=== PATIENT | male | born 1950 | race Caucasian/White ===

== ENCOUNTER 2024-04-27 09:47 | Outpatient (CLI) | payer MEDICARE, SELFPAY ==
--- NOTE | ~2024-04-27 | US_ITS ---
EXAMINATION: US carotid duplex BI DATE: 04/27/2024 10:27 INDICATION: Carotid occlusion. TECHNIQUE: Grayscale, color Doppler, and pulsed Doppler images of the cervical carotid arteries were obtained. The degree of vessel stenosis is placed in one of the following categories: normal, <50%, 5 0-69%, >=70% but less than near-occlusion, near-occlusion, or total occlusion. Note that percent sten osis relative to normal distal artery lumen diameter is indirectly measured from velocity measurement s as described by Eddie, et al. Radiology 2003; 229:340-346. Notes: Normal: Peak systolic velocity <125 centimeters/sec and no plaque <50%. Peak systolic velocity <125 ( EDV <40; ICA/CCA PSV ratio <2.0; used these factors only a tandem lesions or low cardiac output or co ntralateral disease) 50-69 %: PSV 125-230 (EDV 40-100; ratio 2-4) >= 70% but less than near occlusion: PSV greater than 230 (EDV > 100; ratio> 4.0) Near Occlusion: PSV that is variable; markedly narrowed lumen Occlusion: Absent flow on color/spectral Doppler and no lumen on donald scale. COMPARISON: None. FINDINGS: RIGHT: The right common carotid artery (CCA) peak systolic velocity (PSV) is 92 cm/s. The right internal car otid artery (ICA) PSV is 56 cm/s. The right ICA end-diastolic velocity (EDV) is 17 cm/s. The right IC A/CCA PSV ratio is 0.6. The external carotid artery (ECA) PSV is 44 cm/s. There is antegrade flow in the right vertebral artery. LEFT: The left CCA PSV is 83 cm/s. The left ICA PSV is 55 cm/s. The left ICA EDV is 19 cm/s. The left ICA/C CA PSV ratio is 0.7. The ECA PSV is 63 cm/s. There is antegrade flow in the left vertebral artery. IMPRESSION: 1. Less than 50% stenosis in the right internal carotid artery by sonographic criteria. 2. Less than 50% stenosis in the left internal carotid artery by sonographic criteria. Reviewed, dictated and finalized at location B. IMPRESSION: 1. Less than 50% stenosis in the right internal carotid artery by sonographic sonia trujillo. 2. Less than 50% stenosis in the left internal carotid artery by sonographic shin vital.
--- OUTSIDE RECORDS SUMMARY | 2024-04-27 10:48 | XMS_ITS | CONTINUITY OF CARE DOCUMENT ---
Author Name bobby rosales Address Unknown Organization [facility] Address [address] [place] [address] Phone [phone] Care Team Providers Care Meeting Facilitator Name Role Phone Hakan ZELAYA, Wendi Baer Unavailable [phone] Ananth Morris MD Unavailable Ananth Morris MD Unavailable PROBLEMS Condition Status Date Provider Notes AMI SUBENDOCARDIAL active Wendi Mcclendon MD CAD completed - Adi Cabrera MD HTN BORDERLINE active Wendi Mcclendon MD Hypercholesterolemia, mixed active Lin prince CHF active Wendi Mcclendon MD CARDIOMYOPATHY ef 40% active Adi Menchaca Dizziness carotid doppler mild plaque active Adi Cabrera MD Snoring active Wendi Mcclendon MD Shortness of breath active Wendi Mcclendon MD PVC's active Wendi Mcclendon MD CALLUM active Wendi Mcclendon MD Cardiology examination active Wendi sr MD ENCOUNTERS Date Type Provider Location Encounter Diag nosis - In-person encounter Office Visit Wendi Mcclendon MD [facility] Cardiology examination - In-person encounter Office Visit Wendi Mcclendon MD [facility] - In-person encounter Office Visit Wendi Mcclendon MD [facility] - In-person encounter Office Visit Wendi Mcclendon MD [facility] - In-person encounter Office Visit Wendi Mcclendon MD [facility] - In-person encounter Office Visit Wendi Mcclendon MD [facility] - In-person encounter Office Visit Wendi Mcclendon MD [facility] CALLUM - In-person encounter Office Visit Wendi Mcclendon MD [facility] Office - In-person encounter Office Visit Wendi Mcclendon MD [facility] - In-person encounter Office Visit Wendi Mcclendon MD [facility] PVC's - In-person encounter Office Visit Wendi Mcclendon MD [facility] - In-person encounter Office Visit Wendi Mcclendon MD [facility] - In-person encounter Office Visit Wendi Mcclendon MD [facility] - In-person encounter Office Visit Wendi Mcclendon MD [facility] - In-person encounter Office Visit Wendi Mcclendon MD [facility] Shortness of breath - In-person encounter Office Visit Wendi Mcclendon MD [facility] - In-person encounter Office Visit Wendi Mcclendon MD [facility] - In-person encounter Office Visit Wendi Mcclendon MD [facility] Snoring - In-person encounter Office Visit Wendi Mcclendon MD [facility] - In-person encounter Office Visit Wendi Mcclendon MD [facility] - In-person encounter Office Visit Adi Cabrera MD [facility] CADCARDIOMYOPATHY ef 40%Dizziness carotid doppler 06/23 mild plaque - In-person encounter Office Visit Wendi Mcclendon MD [facility] - In-person encounter Office Visit Wendi Mcclendon MD [facility] - In-person encounter Office Visit Wendi Mcclendon MD [facility] AMI SUBENDOCARDIALHTN BORDERLINEHypercholesterolem ia, mixedCHFCARDIOMYOPATHY ef 40% VITAL SIGNS Date Observation Value Provider Body Mass Index (Ratio) 37.60 kg/m2 Kevin Mcclendon MD blood pressure, diastolic 82 mm[Hg] [facility] systolic 121 mm[Hg] [facility] oxygen saturation, oximetry 94 % [facility] respiratory rate E&M 14 /min [facility] pulse rate 89 /min Rebecca [place] weight E&M 226 [lb_av] [facility] height E&M 65 [in_i] [facility] blood pressure, cuff size regular [facility] Body Mass Index (Ratio) 37.94 kg/m2 Rodo reyez Sam blood pressure, diastolic 94 mm[Hg] Li nkLogic blood pressure, systolic 148 mm[Hg] Shelbie kLogic respiratory rate E&M 14 /min Hanh Evangelista pulse rate 71 /min Hanh Evangelista oxygen saturation, oximetry 97 % Hanh Possara blood pressure, diastolic 94 mm[Hg] Shaila bright Posley blood pressure, systolic 148 mm[Hg] Les lie Posley blood pressure, cuff size regular Shaila bright [place] weight E&M 228 [lb_av] Hanh [place] height E&M 65 [in_i] Hanh Posley Body Mass Index (Ratio) 39.27 kg/m2 Kevin Mcclendon MD blood pressure, diastolic 70 mm[Hg] Li nkLogic blood pressure, systolic 114 mm[Hg] Shelbie kLogic blood pressure, cuff size regular Ke rri Gruenenfelder blood pressure, diastolic 70 mm[Hg] Ke rri Gruenenfelder blood pressure, systolic 114 mm[Hg] Ker ri Mohituenenfelder oxygen saturation, oximetry 99 % Lin Cornellnesadieeldmagdalena respiratory rate E&M 12 /min Lin G ruenenfelder pulse rate 93 /min Lin Gruenenfe lder weight E&M 236 [lb_av] Lin Gruenenfe lder height E&M 65 [in_i] Lin Gruenenfe lder Body Mass Index (Ratio) 38.60 kg/m2 Kevin Mcclendon MD blood pressure, diastolic 80 mm[Hg] Yandy nkLogic blood pressure, systolic 129 mm[Hg] Shelbie Esmerogic blood pressure, diastolic 80 mm[Hg] St neal Donnelly blood pressure, systolic 129 mm[Hg] Sheri Donnelly oxygen saturation, oximetry 97 % Elza Donnelly pulse rate 83 /min Elzawill Donnelly respiratory rate E&M 16 /min Elza siddiqui weight E&M 232 [lb_av] Elzawill Donnelly height E&M 65 [in_i] Elza Donnelly Body Mass Index (Ratio) 38.10 kg/m2 Kevin Mcclendon MD blood pressure, diastolic 73 mm[Hg] Li nkLogic blood pressure, systolic 116 mm[Hg] Shelbie kLogic blood pressure, cuff size regular Ja rret blood pressure, diastolic 73 mm[Hg] Ja rret blood pressure, systolic 116 mm[Hg] Jar ret oxygen saturation, oximetry 95 % Avtar respiratory rate E&M 12 /min Avtar pulse rate 73 /min Avtar y weight E&M 229 [lb_av] Avtar y height E&M 65 [in_i] Avtar y Body Mass Index (Ratio) 39.27 kg/m2 Kevin Mcclendon MD blood pressure, diastolic 83 mm[Hg] Li nkLogic blood pressure, systolic 135 mm[Hg] Shelbie kLogic blood pressure, diastolic 83 mm[Hg] Ca therine Kishore blood pressure, systolic 135 mm[Hg] Cat herine Kishore oxygen saturation, oximetry 97 % Harper Kishore respiratory rate E&M 16 /min Catheri ne [place] pulse rate 94 /min Harper Kishore weight E&M 236 [lb_av] Harper [place] blood pressure, cuff size regular Ca therine [place] height E&M 65 [in_i] Harper Kishore blood pressure, diastolic 88 mm[Hg] Li nkLogic blood pressure, systolic 150 mm[Hg] Shelbie kLogic Body Mass Index (Ratio) 38.60 kg/m2 Kevin Mcclendon MD blood pressure, cuff size regular Tr darren [place] blood pressure, diastolic 88 mm[Hg] Tr darren Ranulfo blood pressure, systolic 150 mm[Hg] Zuleika [place] oxygen saturation, oximetry 99 % Taran [place] respiratory rate E&M 18 /min Trymark [place] pulse rate 88 /min Taran [place] weight E&M 232 [lb_av] Taran [place] height E&M 65 [in_i] Taran Ranulfo blood pressure, diastolic 70 mm[Hg] Sa brynn Mcclendon MD blood pressure, systolic 130 mm[Hg] Lloyd Mcclendon MD pulse rate 70 /min Wendi damon MD Body Mass Index (Ratio) 41.26 kg/m2 Kevin Mcclendon MD blood pressure, cuff size regular Cy janelson Castaneda blood pressure, diastolic 74 mm[Hg] Cy ntjoannanelson Castaneda blood pressure, systolic 120 mm[Hg] Brenda nilsonnelson Castaneda pulse rate 96 /min Mami Josefa l respiratory rate E&M 16 /min Mami Castaneda oxygen saturation, oximetry 98 % Mami Castaneda weight E&M 248 [lb_av] Mami Matthewbel l height E&M 65 [in_i] Mami Campbel l Body Mass Index (Ratio) 40.77 kg/m2 Kevin Mcclendon MD blood pressure, diastolic 81 mm[Hg] To nsha Bradley blood pressure, systolic 117 mm[Hg] Ton sha Bradley oxygen saturation, oximetry 98 % Tonsha Bradley respiratory rate E&M 16 /min Tonsha Bradley pulse rate 81 /min Tonsha Bradley weight E&M 245 [lb_av] Tonsha Bradley height E&M 65 [in_i] Tonsha Bradley Body Mass Index (Ratio) 41.60 kg/m2 Kevin Mcclendon MD blood pressure, cuff size regular Cy ntreinaldo Castaneda blood pressure, diastolic 80 mm[Hg] Cy ntjoannaa Castaneda blood pressure, systolic 124 mm[Hg] Brenda terrell Castaneda oxygen saturation, oximetry 95 % Mami Castaneda respiratory rate E&M 16 /min Mami Castaneda pulse rate 75 /min Mami Campbel l weight E&M 250 [lb_av] Mami Campbel l height E&M 65 [in_i] Mami Campbel l Body Mass Index (Ratio) 41.10 kg/m2 Kevin Mcclendon MD blood pressure, cuff size regular Cy ntreinaldo Castaneda blood pressure, diastolic 70 mm[Hg] Cy ntjoannaa Castaneda blood pressure, systolic 116 mm[Hg] Brenda terrell Castaneda oxygen saturation, oximetry 98 % Mamiterrell Castaneda respiratory rate E&M 18 /min Mami Castaneda pulse rate 90 /min Mami Campbel l weight E&M 247 [lb_av] Mami Campbel l height E&M 65 [in_i] Mami Campbel l Body Mass Index (Ratio) 40.50 kg/m2 Jalen Plurad blood pressure, cuff size large Ke rri Mohituenemary blood pressure, diastolic 80 mm[Hg] Ke rri Gruenenfeldmagdalena blood pressure, systolic 130 mm[Hg] Ker ri Ivis oxygen saturation, oximetry 96 % Lin Ivis respiratory rate E&M 18 /min Lin elam pulse rate 74 /min Lin Cornellnesadiee lder weight E&M 243.4 [lb_av] Lin Bernardino rojas height E&M 65 [in_i] Lin Grradhanesadiee lder Body Mass Index (Ratio) 41.43 kg/m2 Kevin Mcclendon MD blood pressure, resting No GrettaEmilee Hummel blood pressure, diastolic 87 mm[Hg] Yonny Stiven Anneenson blood pressure, systolic 135 mm[Hg] Carolyn Hummel oxygen saturation, oximetry 96 % Santos Anneenson respiratory rate E&M 20 /min LissetShayy Hummel pulse rate 93 /min Santos Kei cicion weight E&M 249.0 [lb_av] Santos Omid on height E&M 65 [in_i] Santos Choudhury cicion blood pressure, diastolic 100 mm[Hg] Be tsy Ruiz blood pressure, systolic 150 mm[Hg] Bet sy Ruiz blood pressure, diastolic 80 mm[Hg] Ke rri Ivis blood pressure, systolic 130 mm[Hg] Dipika ri Ivis pulse rate 89 /min Lin Saran arguetaer oxygen saturation, oximetry 96 % Lin Langston respiratory rate E&M 16 /min Lin elam Body Mass Index (Ratio) 40.77 kg/m2 Amador i Ivis weight E&M 245 [lb_av] Lin Bernardinoe lder blood pressure, diastolic 91 mm[Hg] Yonny Stiven Hummel blood pressure, systolic 138 mm[Hg] Carolyn Hummel pulse rate 82 /min Santos Kei ami oxygen saturation, oximetry 96 % Santos Hummel respiratory rate E&M 16 /min Wendy Hummel Body Mass Index (Ratio) 41.23 kg/m2 Lisset Hummel weight E&M 247.8 [lb_av] Santos petersonon blood pressure, diastolic 91 mm[Hg] Yonny Hummel blood pressure, systolic 136 mm[Hg] Carolyn Hummel Body Mass Index (Ratio) 40.17 kg/m2 Lisset Hummel pulse rate 68 /min Santos bolanoson oxygen saturation, oximetry 96 % Santos Hummel respiratory rate E&M 16 /min Wendy Hummel weight E&M 241.4 [lb_av] Santos salazar Body Mass Index (Ratio) 39.77 kg/m2 Amador i Ivis blood pressure, diastolic 78 mm[Hg] Ke rri Ivis blood pressure, systolic 140 mm[Hg] Dipika Langston pulse rate 68 /min Lin Noonan lder oxygen saturation, oximetry 97 % Lin Langston respiratory rate E&M 16 /min Lin elam weight E&M 239 [lb_av] Lin Noonan lder Body Mass Index (Ratio) 40.53 kg/m2 Demetrius sulaiman [place] [employer] weight E&M 243.6 [lb_av] Jazmin [place] [employer] RE[employer]TER blood pressure, diastolic 90 mm[Hg] Sh erry Zoraida C[employer]IED [employer]ORTH[employer] REPORTER blood pressure, systolic 134 mm[Hg] She rry [place] [employer] RE[employer]TER Body Mass Index (Ratio) 38.20 kg/m2 Demetrius ry Zoraida C[employer]IED [employer]ORTH[employer] REPORTER weight E&M 229.6 [lb_av] Jazmin [place] [employer] RE[employer]TER Body Mass Index (Ratio) 38.27 kg/m2 Anea mahesh Gato blood pressure, diastolic 90 mm[Hg] An eatris Brown blood pressure, systolic 134 mm[Hg] Ane atris Brown pulse rate 69 /min Aneatris Brown oxygen saturation, oximetry 97 % Aneatris Brown respiratory rate E&M 16 /min Aneatri s Brown weight E&M 230 [lb_av] Aneatris Brown Body Mass Index (Ratio) 37.94 kg/m2 Amador i Ivis blood pressure, diastolic 78 mm[Hg] Ke rri Ivis blood pressure, systolic 122 mm[Hg] Ker ri Ivis pulse rate 72 /min Lin Saran arguetaer oxygen saturation, oximetry 98 % Lin Ivis respiratory rate E&M 16 /min Lin G papa weight E&M 228 [lb_av] Lin Bernardinoe lder Body Mass Index (Ratio) 38.88 kg/m2 Demetrius [place] C[employer]IED [employer]TH[employer] REPORTER weight E&M 232.8 [lb_av] Jazmin Hopkinsdall C[employer]OR[employer] REPORTER Body Mass Index (Ratio) 22.88 kg/m2 Elizabeth ssa Rivera blood pressure, diastolic 84 mm[Hg] Me eleazar Rivera blood pressure, systolic 120 mm[Hg] Bambi lexa Rivera pulse rate 70 /min Jie Rivera oxygen saturation, oximetry 97 % Jie Rivera respiratory rate E&M 16 /min Jie Rivera weight E&M 137 [lb_av] Jie Rivera height E&M 65 [in_i] Jie Miguel ALLERGIES Allergy Name Onset Date Reaction Criticality Status ADVIL High Criticality active RESULTS Date Observation Value Provider Reference Range Interpretation Location alanine aminotransferase (SGPT), serum 18 1/L [facility] 9-46 Normal aspartate aminotransferase (SGOT), serum 12 1/L [facility] 10-35 Normal alkaline phosphatase, serum 73 1/L [facility] 40-115 Normal bilirubin, serum, indirect 0.6 MG/DL (CALC) [facility] 0.2-1.2 Normal bilirubin, serum, direct 0.1 mg/dL [facility] < OR = 0.2 Normal bilirubin, serum, total 0.7 mg/dL [facility] 0.2-1.2 Normal albumin/globulin ratio, serum 1.6 (calc) [facility] 1.0-2.5 Normal globulins, serum, total 2.4 G/DL (CALC) [facility] 1.9-3.7 Normal albumin, serum 3.9 g/dL [facility] 3.6-5.1 Normal protein, total, serum 6.3 g/dL [facility] 6.1-8.1 Normal cholesterol, non-HDL, total 121 MG/DL (CALC) [facility] Normal cholesterol/HDL ratio, serum, percent 3.5 (calc) [facility] < OR = 5.0 Normal LDL cholesterol, serum 98 MG/DL (CALC) [facility] <130 Normal triglyceride, serum, fasting 113 mg/dL [facility] <150 Normal HDL cholesterol, serum 48 mg/dL [facility] > OR = 40 Normal cholesterol, serum 169 mg/dL [facility] 125-200 Normal cholesterol, non-HDL, total 127 MG/DL (CALC) [facility] Normal cholesterol/HDL ratio, serum, percent 3.8 (calc) [facility] < OR = 5.0 Normal LDL cholesterol, serum 100 MG/DL (CALC) [facility] <130 Normal triglyceride, serum, fasting 136 mg/dL [facility] <150 Normal HDL cholesterol, serum 45 mg/dL [facility] > OR = 40 Normal cholesterol, serum 172 mg/dL [facility] 125-200 Normal triglyceride, serum, fasting 136 mg/dL [facility] HDL cholesterol, serum 42 mg/dL [facility] LDL cholesterol, serum 155 mg/dL [facility] cholesterol, serum 224 mg/dL [facility] cholesterol/HDL ratio, serum 3.8 Jazmin [place] C[employer] RE[employer]TER triglyceride, serum, fasting 126 mg/dL Jazmin Zoraida C[employer]OR[employer] REPORTER HDL cholesterol, serum 42 mg/dL Jazmin [place] [employer] RE[employer] LDL cholesterol, serum 94 mg/dL Jazmin Zoraida C[employer] RE[employer] cholesterol, serum 161 mg/dL Jazmin Zoraida C[employer] REPORTER triglyceride, target level 150 mg/dL Jazmin Zoraida C[employer] REPORTER HDL cholesterol, serum, target level 40 mg/dL Jazmin [place] C[employer] RE[employer] LDL target level 100 mg/dL Jazmin Zoraida C[employer] REPORTER cholesterol, target level 200 mg/dL Jazmin Zoraida C[employer] REPORTER cholesterol/HDL ratio, serum 3.8 Jazmin Zoraida C[employer] REPORTER triglyceride, serum, fasting 113 mg/dL Jazmin Zoraida C[employer] RE[employer] HDL cholesterol, serum 44 mg/dL Jazmin [place] C[employer] RE[employer] LDL cholesterol, serum 100 mg/dL Jazmin Zoraida C[employer] REPORTER cholesterol, serum 166 mg/dL Jazmin Zoraida C[employer] REPORTER TOTAL NON-HDL-C (LDL VLDL) 117 Jazmin Zoraida C[employer] REPORTER cholesterol/HDL ratio, serum 4.3 Jazmin Zoraida C[employer] REPORTER cholesterol, serum 151 mg/dL Jazmin Zoraida [employer] RE[employer]TER triglyceride, target level 150 mg/dL Jazmin [place] C[employer] RE[employer] HDL cholesterol, serum, target level 40 mg/dL Jazmin Zoraida C[employer] REPORTER triglyceride, serum, fasting 87 mg/dL Jazmin Zoraida C[employer] REPORTER Normal HDL cholesterol, serum 38 mg/dL Jazmin Zoraida C[employer]IED [employer]OR[employer] REPORTER Low LDL cholesterol, serum 99 mg/dL Jazmin Conway C[employer]IED [employer]OR[employer] REPORTER Normal LDL target level 100 mg/dL Jazmin Ortizll C[employer]IED [employer] REPORTER cholesterol, target level 200 mg/dL Jazmin Conway C[employer] REPORTER platelet count 156 10*3/mm3 [facility] hematocrit, blood 38.2 % [facility] triglyceride, serum, fasting 176 mg/dL [facility] HDL cholesterol, serum 40 mg/dL [facility] lipoprotein, beta, serum, point, quantitative, calculated 139 mg/dL [facility] cholesterol, serum 214 mg/dL [facility] D-dimer quantitative mcg/mL 0.59 ug/mL [facility] B-type natriuretic peptide 10.7 pg/mL [facility] creatinine, serum 0.80 mg/dL [facility] potassium, serum 4.3 mmol/L [facility] sodium, serum 136 mmol/L [facility] HISTORY OF MEDICATION USE Medication Status Instructions Dates Provider Indications Com ments atorvastatin 20 mg tablet active TAKE 1 TABLET BY MOUTH EVERY DAY 1 Annette Rushing enalapril maleate 10 mg tablet active TAKE 1 TABLET BY MOUTH DAILY 8 Cristina Gee atorvastatin 20 mg tablet completed TAKE 1 TABLET BY MOUTH DAILY 7 - 1 Dara Schultz carvedilol 3.125 mg tablet active TAKE 1 TABLET BY MOUTH TWICE DAILY 2 Annette Motthiyeni enalapril maleate 10 mg tablet completed Take 1 tablet by mouth once a day 9 - 8 Dara Schultz glimepiride 1 mg tablet active tablet by mouth once a day Santos Hummel metformin 500 mg tablet active 1 tablet by mouth twice a day Wendi Mcclendon MD Lipitor 20 mg tablet completed 1 tablet by mouth once a day 5 - 7 Megan Adam ZETIA 10 MG ORAL TABLET completed ONE TAB. DAILY 4 - 5 Ananda Cervantes RN CRESTOR 20 MG ORAL TABLET completed ONE TAB. DAILY 8 - 4 Ananda Cervantes RN LIPITOR 80 MG ORAL TABLET completed ONE TAB. DAILY 0 - 8 Jazmin Conway NP carvedilol 3.125 mg tablet completed 1 tablet by mouth twice a day - 2 Wendi Mcclendon MD ENALAPRIL MALEATE 10 MG ORAL TABLET completed once daily - 8 Otto Stewart PLAVIX 75 MG ORAL TABLET completed once daily - 4 Santos Hummel aspirin 325 mg tablet active tablet by mouth once a day Wendi Mcclendon MD SOCIAL HISTORY Date Observation Value Provider alcohol use no Yolanda Lilly NP smoking status Never smoker Yolanda Francisco i, NP alcohol use no Wendi damon MD smoking status Never smoker Wendi sr MD smoking status Never smoker Elza Donnelly social history E&M Patient has n ever smoked. Smoking History: Sam monzon has never smoked. Wendi Mcclendon MD social history reviewed E&M revi ewed - no changes required Wendi Mcclendon MD smoking status Never smoker Harper aparicio social history reviewed E&M revi ewed - no changes required Wendi Mcclendon MD social history reviewed E&M revi ewed - no changes required Wendi Mcclendon MD social history E&M Patient has n ever smoked. Smoking History: P na has never smoked. Wendi Mcclendon MD social history reviewed E&M revi ewed - no changes required Wendi Mcclendon MD smoking status Never smoker Mami elizalde smoking status Never smoker Wendi sr MD social history E&M Patient has n ever smoked. Smoking History: P na has never smoked. Wendi Mcclendon MD social history reviewed E&M revi ewed - no changes required Wendi Mcclendon MD smoking status Never smoker Wendi sr MD social history E&M Patient has n ever smoked. Smoking History: P na has never smoked. Wendi Mcclendon MD social history reviewed E&M revi ewed - no changes required Wendi Mcclendon MD social history reviewed E&M revi ewed - no changes required Wendi Mcclendon MD social history reviewed E&M revi ewed - no changes required Wendi Mcclendon MD social history E&M Patient has n ever smoked. Smoking History: Sam monzon has never smoked. Wendi Mcclendon MD alcohol use no Lin Noonan lder smoking status Never smoker Lin torres number of grandchildren Wendi Mcclendon MD social history reviewed E&M revi ewed - no changes required Wendi Mcclendon MD alcohol use no Santos Choudhury ami smoking status Never smoker Santos Gary smoking status Never smoker Lesley Ruiz social history reviewed E&M revi ewed - no changes required Wendi Mcclendon MD alcohol use no Lin Noonan lder smoking status Never smoker Lin Grjose juan torres social history reviewed E&M revi ewed - no changes required Wendi Mcclendon MD alcohol use no Santos Choudhury ami smoking status Never smoker Santoskeyur Gary social history E&M Patient has n ever smoked. Smoking History: Sam monzon has never smoked. Wendi Mcclendon MD social history reviewed E&M revi ewed - no changes required Wendi Mcclendon MD alcohol use no Santos Choudhury nson smoking status Never smoker Wendi sr MD alcohol use no Lin Noonan lder smoking status Never smoker Lin Franks brian smoking/tobacco cess ation, patient education and counseling yes Jazmin [place] C[employer]IED [employer] REPORTER smoking status Former smoker Jazmin Tinda ll CERT[employer]IED SHORTH[employer] REPORTER smoking/tobacco cess ation, patient education and counseling yes Jazmin Zoraida CERTIFIED SHORTH[employer] REPORTER smoking status Former smoker Jazmin Hopkinsda ll CERT[employer]IED SHORTH[employer] REPORTER social history reviewed E&M revi ewed - no changes required Adi Cabrera MD social history reviewed E&M revi ewed - no changes required Wendi Mcclendon MD alcohol use no Lin Noonan lder smoking status Never smoker Lin Ruedajose juan torres Occupation #1 [employer] Wendi ghotra MD social history reviewed E&M reviewed Wendi Mcclendon MD smoking status never smoker Jie Steph baer FUNCTIONAL STATUS Date Observation Value Provider HRA, CV Assess/Plan, Angina (inactive) Management Plan continue current therapy Yolanda Lilly NP HRA, CV Assess/Plan, Angina (inactive) Management Plan continue current therapy Wendi Mcclendon MD HRA, CV Assess/Plan, Angina (inactive) Management Plan continue current therapy Wendi Mcclendon MD HRA, CV Assess/Plan, Angina (inactive) Management Plan continue current therapy Wendi Mcclendon MD HRA, CV Assess/Plan, Angina (inactive) Management Plan continue current therapy Wendi Mcclendon MD HRA, CV Assess/Plan, Angina (inactive) Management Plan continue current therapy Wendi Mcclendon MD HRA, CV Assess/Plan, Angina (inactive) Management Plan continue current therapy Wendi Mcclendon MD HRA, CV Assess/Plan, Angina (inactive) Management Plan continue current therapy Wendi Mcclendon MD HRA, CV Assess/Plan, Angina (inactive) Management Plan continue current therapy Wendi Mcclendon MD HRA, CV Assess/Plan, Angina (inactive) Management Plan continue current therapy Wendi Mcclendon MD HRA, CV Assess/Plan, Angina (inactive) Management Plan continue current therapy Wendi Mcclendon MD periodic limb movement index absent (0) Lesley Ruiz HRA, CV Assess/Plan, Angina (inactive) Management Plan continue current therapy Wendi Mcclendon MD HRA, CV Assess/Plan, Angina (inactive) Management Plan continue current therapy Wendi Mcclendon MD MENTAL STATUS Date Observation Value Provider assessment of judgme nt and insight E&M Alert and oriented to time, place and person. Mood and affect are normal. Wendi Mcclendon MD FAMILY HISTORY Family Member Condition Father Family History Unkno wn Mother Negative FH of Coron babar Artery Disease INSURANCE PROVIDERS Payer name Policy type / Coverage type [place] red democrat ID [employer] MEDICARE ADVANTAGE HMO-POS HMO [id number] ADVANCE DIRECTIVES Name Date DISCUSSED - NO DECISION MADE TREATMENT PLAN Date Name Performer [id number],C,W ould benefit from reduction in carbs. reviewed with him about his diet . trigs 175 Wendi Mcclendon MD [id number],C, N eeds work up for SOB> He had PFTS done which were okay Wendi Mcclendon MD [id number],C, H AD PVCs ON EKG WILL HAVE HIM WEAR A 24 HR TELE MONITOR AND CHECK GAURAV STRESS FOR ISCHEMIC. echo showed normal LV function p rior hx of stent to LAD CONCLUSIONS stress from 01/02/21 1 . Normal sinus rhythm. Poor R wave progression. 2 . Normal Exercise Gee protocol ECG with no ischemic ST or T changes. There is no ECG evidence of myocardial ischemia w ith exercise. 3 . Frequent PVCs seen during stress portion of the exam. 4 . Left Ventricular Ejection Fraction is 53 %. TID: 0.86. 5 . Abnormal perfusion imaging in the inferior wall with a moderate perfusion defect and is not reversible. 6 . Diaphragmatic attenuation artifact noted affecting inferior wall. Wendi Mcclendon MD [id number],S, Remains on 3 25 Aspirin. Wendi Mcclendon MD [id number],C, H is updated medication list for this problem includes: Carvedilol 3.125 Mg Tablet (Carvedilol) ..... Take 1 tablet by mouth twice daily Enalapril Maleate 10 Mg Tablet (Enalapril maleate) ..... Take 1 tablet by mouth daily Aspirin 325 Mg Tablet (Aspirin) ..... Tablet by mouth once a day BP today: 116/73 P rior BP: 135/83 (06/27/2021) Prior 10 Yr Risk Heart Disease: N/A (07/21/2013) Labs Reviewed: C reat: 0.80 (05/24/2013) C hol: 169 (08/04/2016) HDL: 48 (08/04/2016) LDL: 98 MG/DL (CALC) (08/04/2016) T (08/04/2016) Wendi Mcclendon MD [id number],C, C ould have worsening CHF. CHeck echo since he is SOB> H is updated medication list for this problem includes: Carvedilol 3.125 Mg Tablet (Carvedilol) ..... Take 1 tablet by mouth twice daily Enalapril Maleate 10 Mg Tablet (Enalapril maleate) ..... Take 1 tablet by mouth daily Aspirin 325 Mg Tablet (Aspirin) ..... Tablet by mouth once a day Wendi Mcclendon MD [id number],S, N eeds work up for SOB> Wendi Mcclendon MD [id number],C, N eeds cardiac work up.History of LAD stents. Check echo, nuclear stress, BNP. Wendi Mcclendon MD [id number],C, M arch 2019 Echo C ONCLUSIONS: 1 . Normal left ventricular systolic function. Normal left ventricular size. Normal left ventricular wall thickness. There is E to A w ave reversal consistent with impaired LV relaxation. E/E': 11.8. Left ventricular ejection fraction is measured at 55 %. 2 . Normal right ventricular size. Normal right ventricular systolic function. 3 . There is trace physiologic mitral valve regurgitation. 4 . There is trace physiologic tricuspid valve regurgitation. 5 . There is trace physiologic pulmonic valve regurgitation. & #13;Had repeat echo done 07/30/2020, no sig changes compareed to previous C ONCLUSIONS: 1 . Normal left ventricular systolic function. Normal left ventricular size. Normal left ventricular wall thickness. Normal left v entricular diastolic function. Left ventricular ejection fraction is measured at 55 %. 2 . Normal right ventricular size. Normal right ventricular systolic function. 3 . No significant valvular abnormalities. 4 . Technically difficult study, secondary to poor acoustic windows E lectronically signed by Wendi Mcclendon MD on 08/07/2020 at 2:50 PM Wendi Mcclendon MD [id number],Anu Brennan lipid panel. H is updated medication list for this problem includes: Atorvastatin 20 Mg Tablet (Atorvastatin) ..... Take 1 tablet by mouth daily Wendi Mcclendon MD [id number],anu Brennan echo R emains on ASA Wendi Mcclendon MD [id number],Sam Brennan rior Hx of: NSTEMI in 05/2013 where he had Percutaneous transluminal coronary angioplasty stenting of high-grade 100% BREANA I 0 flow LAD in the proximal segment, treated with a 2.75 x 38 mm Promus PREMIER drug-eluting stent; followed by direct stenting of mid LAD 80% lesion, treated with a 2.75 x 20 mm Promus PREMIER drug-eluting stent in 05/2013. Was recently seen on July 31, 2016 F siva well.. No new events. Had regular stress test done where he achieved 10 METS. Currently, BP is well controlled. 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 since he had SOB on prior office visit he had a nuclear stress test done as well as an echo and prior abdominal aorta ultrasound. Nuclear 10/29/2016Summary 1 . Abnormal myocardial imaging after vasodilator stress with Regadenoson. 2 . There is a small fixed inferior wall defect consistent with infarct 3 . Normal left ventricular systolic function with a calculated ejection fraction of 51%. March 24, 2020 Anu gifford nuc study this year June 23, 2020 O rder new stress December 15, 2020 S tress has to be done, he did not compelte Wendi Mcclendon MD [id number],C, C onclusions: Minimal airway obstruction is present suggesting small airway disease. P ulmonary Function Diagnosis: M inimal Obstructive Airways Disease October 13, 2019 N otes improvement in his breathing overall. Using CPAP. The patient is using CPAP on a regular basis. The patient has been benefiting from therapy and should continue use. June 23, 2020 The patient is using CPAP on a regular basis. The patient has been benefiting from therapy and should continue use. Wendi Mcclendon MD [id number],C, C ONCLUSIONS: 1 . Normal left ventricular systolic function. Normal left ventricular size. Normal left ventricular wall thickness. There is E to A w ave reversal consistent with impaired LV relaxation. E/E': 11.8. Left ventricular ejection fraction is measured at 55 %. 2 . Normal right ventricular size. Normal right ventricular systolic function. 3 . There is trace physiologic mitral valve regurgitation. 4 . There is trace physiologic tricuspid valve regurgitation. 5 . There is trace physiologic pulmonic valve regurgitation. December 15, 2020 EF was preserved, SOB may not be related to CAD, intermittently using CPAP, advised to use it regularly Wendi Mcclendon MD [id number],C, T he patient is using CPAP on a regular basis. The patient has been benefiting from therapy and should continue use. Wendi Mcclendon MD [id number],C, H AD PVCs ON EKG WILL HAVE HIM WEAR A 24 HR TELE MONITOR AND CHECK GAURAV STRESS FOR ISCHEMIC. Wendi Mcclendon MD [id number],C, c balta echo R emains on ASA Wendi Mcclendon MD [id number],Anu P jelly Hx of: NSTEMI in 05/2013 where he had Percutaneous transluminal coronary angioplasty stenting of high-grade 100% BREANA I 0 flow LAD in the proximal segment, treated with a 2.75 x 38 mm Promus PREMIER drug-eluting stent; followed by direct stenting of mid LAD 80% lesion, treated with a 2.75 x 20 mm Promus PREMIER drug-eluting stent in 05/2013. Was recently seen on July 31, 2016 F eels well.. No new events. Had regular stress test done where he achieved 10 METS. Currently, BP is well controlled. 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 since he had SOB on prior office visit he had a nuclear stress test done as well as an echo and prior abdominal aorta ultrasound. Nuclear 10/29/2016Summary 1 . Abnormal myocardial imaging after vasodilator stress with Regadenoson. 2 . There is a small fixed inferior wall defect consistent with infarct 3 . Normal left ventricular systolic function with a calculated ejection fraction of 51%. March 24, 2020 Anu gifford nuc study this year June 23, 2020 O rder new stress December 15, 2020 S tress has to be done, he did not compelte Wendi Mcclendon MD [id number],W, C ONCLUSIONS: 1 . Normal left ventricular systolic function. Normal left ventricular size. Normal left ventricular wall thickness. There is E to A w ave reversal consistent with impaired LV relaxation. E/E': 11.8. Left ventricular ejection fraction is measured at 55 %. 2 . Normal right ventricular size. Normal right ventricular systolic function. 3 . There is trace physiologic mitral valve regurgitation. 4 . There is trace physiologic tricuspid valve regurgitation. 5 . There is trace physiologic pulmonic valve regurgitation. December 15, 2020 EF was preserved, SOB may not be related to CAD, intermittently using CPAP, advised to use it regularly Wendi Mcclendon MD [id number],C F aram Esparza is updated medication list for this problem includes: Lipitor 20 Mg Oral Tablet (Atorvastatin calcium) ..... One tab. daily Wendi Mcclendon MD [id number],C,T he patient is using CPAP on a regular basis. The patient has been benefiting from therapy and should continue use. Wendi Mcclendon MD [id number],C, B P today: 150/88 P rior BP: 130/70 (06/23/2020) Prior 10 Yr Risk Heart Disease: N/A (07/21/2013) Labs Reviewed: C reat: 0.80 (05/24/2013) C hol: 169 (08/04/2016) HDL: 48 (08/04/2016) LDL: 98 MG/DL (CALC) (08/04/2016) T (08/04/2016) His updated medication list for this problem includes: Enalapril Maleate 10 Mg Tablet (Enalapril maleate) ..... Take 1 tablet by mouth daily Aspirin 325 Mg Oral Tablet (Aspirin) ..... Once daily Carvedilol 3.125 Mg Oral Tablet (Carvedilol) ..... One tab twice daily Wendi Mcclendon MD [id number],C, N o new symptoms. C onclusions: 1 . Mild plaque with less than 50% stenosis of the internal carotid arteries bilaterally. 2 . Vertebral flow is antegrade bilaterally.Check carotid doppler. Hasnt had one done in 3 years. Prios hx of carotid stenosis. December 15, 2020 N o significant changes in carotid u/s C ONCLUSIONS: 1 . Mild plaque with less than 50% stenosis of the internal carotid arteries bilaterally. 2 . Vertebral flow is antegrade bilaterally. E lectronically signed by Wendi Mcclendon MD on 08/07/2020 at 2:19 PM Wendi Mcclendon MD [id number],C, C onclusions: Minimal airway obstruction is present suggesting small airway disease. P ulmonary Function Diagnosis: M inimal Obstructive Airways Disease October 13, 2019 N otes improvement in his breathing overall. Using CPAP. The patient is using CPAP on a regular basis. The patient has been benefiting from therapy and should continue use. June 23, 2020 The patient is using CPAP on a regular basis. The patient has been benefiting from therapy and should continue use. Wendi Mcclendon MD [id number],Karlos Brennan arch 2019 Echo C ONCLUSIONS: 1 . Normal left ventricular systolic function. Normal left ventricular size. Normal left ventricular wall thickness. There is E to A w ave reversal consistent with impaired LV relaxation. E/E': 11.8. Left ventricular ejection fraction is measured at 55 %. 2 . Normal right ventricular size. Normal right ventricular systolic function. 3 . There is trace physiologic mitral valve regurgitation. 4 . There is trace physiologic tricuspid valve regurgitation. 5 . There is trace physiologic pulmonic valve regurgitation. & #13;Had repeat echo done 07/30/2020, no sig changes compareed to previous C ONCLUSIONS: 1 . Normal left ventricular systolic function. Normal left ventricular size. Normal left ventricular wall thickness. Normal left v entricular diastolic function. Left ventricular ejection fraction is measured at 55 %. 2 . Normal right ventricular size. Normal right ventricular systolic function. 3 . No significant valvular abnormalities. 4 . Technically difficult study, secondary to poor acoustic windows E lectronically signed by Wendi Mcclendon MD on 08/07/2020 at 2:50 PM Wendi Mcclendon MD Cardiology: H is updated medication list for this problem includes: Carvedilol 3.125 Mg Tablet (Carvedilol) ..... Take 1 tablet by mouth twice daily Enalapril Maleate 10 Mg Tablet (Enalapril maleate) ..... Take 1 tablet by mouth daily Aspirin 325 Mg Tablet (Aspirin) ..... Tablet by mouth once a day BP today: 121/82 P rior BP: 148/94 (09/26/2023) Prior 10 Yr Risk Heart Disease: N/A (07/21/2013) Labs Reviewed: C reat: 0.80 (05/24/2013) C hol: 169 (08/04/2016) HDL: 48 (08/04/2016) LDL: 98 MG/DL (CALC) (08/04/2016) T (08/04/2016) Wendi Mcclendon MD Cardiology: c heck echo Judi osorio on ASA Wendi Mcclendon MD Cardiology:[place] NS: 1 . Normal left ventricular systolic function. Normal left ventricular size. Normal left ventricular wall thickness. There is E to A w ave reversal consistent with impaired LV relaxation. E/E': 11.3 Left ventricular ejection fraction is measured at 55 %. 2 . Normal right ventricular size. Normal right ventricular systolic function. 3 . No significant valvular abnormalities. E lectronically signed by Wendi Mcclendon MD on 09/25/2022 at 5:04 PM Wendi Mcclendon MD Cardiology: T his visit has been a part of the consistent, comprehensive, and ongoing management of the chronic medical condition(s) listed above for the patient. April 2019 Echo C ONCLUSIONS: 1 . Normal left ventricular systolic function. Normal left ventricular size. Normal left ventricular wall thickness. There is E to A w ave reversal consistent with impaired LV relaxation. E/E': 11.8. Left ventricular ejection fraction is measured at 55 %. 2 . Normal right ventricular size. Normal right ventricular systolic function. 3 . There is trace physiologic mitral valve regurgitation. 4 . There is trace physiologic tricuspid valve regurgitation. 5 . There is trace physiologic pulmonic valve regurgitation. Had repeat echo done 07/30/2020, no sig changes compareed to previous C ONCLUSIONS: 1 . Normal left ventricular systolic function. Normal left ventricular size. Normal left ventricular wall thickness. Normal left v entricular diastolic function. Left ventricular ejection fraction is measured at 55 %. 2 . Normal right ventricular size. Normal right ventricular systolic function. 3 . No significant valvular abnormalities. 4 . Technically difficult study, secondary to poor acoustic windows E lectronically signed by Wendi Mcclendon MD on 08/07/2020 at 2:50 PM Echo 09/2022 CONCLUSIONS: 1 . Normal left ventricular systolic function. Normal left ventricular size. Normal left ventricular wall thickness. There is E to A w ave reversal consistent with impaired LV relaxation. E/E': 11.3 Left ventricular ejection fraction is measured at 55 %. 2 . Normal right ventricular size. Normal right ventricular systolic function. 3 . No significant valvular abnormalities. Wendi Mcclendon MD Cardiology:CONCLUSIO NS: 1 . Normal sinus rhythm. Poor R wave progression. 2 . Normal Regadenoson ECG with no ischemic ST or T changes, following vasodilator stress. 3 . Normal left ventricle size. 4 . Left Ventricular Ejection Fraction is 52 % TID: 1.02. 5 . Abnormal perfusion imaging in the mid inferior region with a moderate perfusion defect, which is large in size and and a ppears fixed.no prior history of stenting LAD Percutaneous transluminal coronary angioplasty stenting of high-grade 100% BREANA I 0 flow LAD in the proximal segment, t reated with a 2.75 x 38 mm Promus PREMIER drug-eluting stent; followed by direct stenting of mid LAD 80% lesion, t reated with a 2.75 x 20 mm Promus PREMIER drug-eluting stent. Wendi Mcclendon MD Cardiology: T his visit has been a part of the consistent, comprehensive, and ongoing management of the chronic medical condition(s) listed above for the patient. Needs work up for SOB> He had PFTS done which were okay March 28, 2023 Home sleep study shows an AHI of 25.1 which is consistent with moderate CALLUM. Mean oxygen saturation of 95%, with t he lowest being 87% T he patient is using CPAP on a regular basis. The patient has been benefiting from therapy and should continue use. September 26, 2023 T he patient is using CPAP on a regular basis. The patient has been benefiting from therapy and should continue use. January 16, 2024 T he patient is using CPAP on a regular basis. The patient has been benefiting from therapy and should continue use.\ Wendi Mcclendon MD Cardiology:CONCLUSIO NS: 1 . Normal left ventricular systolic function. Normal left ventricular size. Normal left ventricular wall thickness. There is E to A w ave reversal consistent with impaired LV relaxation. E/E': 11.3 Left ventricular ejection fraction is measured at 55 %. 2 . Normal right ventricular size. Normal right ventricular systolic function. 3 . No significant valvular abnormalities. Wendi Mcclendon MD Cardiology:This visi t has been a part of the consistent, comprehensive, and ongoing management of the chronic medical condition(s) listed above for the patient. Needs work up for SOB> H e had PFTS done which were okay March 28, 2023 Home sleep study shows an AHI of 25.1 which is consistent with moderate CALLUM. Mean oxygen saturation of 95%, with t he lowest being 87% T he patient is using CPAP on a regular basis. The patient has been benefiting from therapy and should continue use. September 26, 2023 T he patient is using CPAP on a regular basis. The patient has been benefiting from therapy and should continue use. Yolanda Lilly NP Cardiology: Remains on 325 Aspirin. No angina Yolanda Lilly NP Cardiology:This visi t has been a part of the consistent, comprehensive, and ongoing management of the chronic medical condition(s) listed above for the patient. April 2019 Echo C ONCLUSIONS: 1 . Normal left ventricular systolic function. Normal left ventricular size. Normal left ventricular wall thickness. There is E to A w ave reversal consistent with impaired LV relaxation. E/E': 11.8. Left ventricular ejection fraction is measured at 55 %. 2 . Normal right ventricular size. Normal right ventricular systolic function. 3 . There is trace physiologic mitral valve regurgitation. 4 . There is trace physiologic tricuspid valve regurgitation. 5 . There is trace physiologic pulmonic valve regurgitation. Had repeat echo done 07/30/2020, no sig changes compareed to previous C ONCLUSIONS: 1 . Normal left ventricular systolic function. Normal left ventricular size. Normal left ventricular wall thickness. Normal left v entricular diastolic function. Left ventricular ejection fraction is measured at 55 %. 2 . Normal right ventricular size. Normal right ventricular systolic function. 3 . No significant valvular abnormalities. 4 . Technically difficult study, secondary to poor acoustic windows E lectronically signed by Wendi Mcclendon MD on 08/07/2020 at 2:50 PM Echo 09/2022 CONCLUSIONS: 1 . Normal left ventricular systolic function. Normal left ventricular size. Normal left ventricular wall thickness. There is E to A w ave reversal consistent with impaired LV relaxation. E/E': 11.3 Left ventricular ejection fraction is measured at 55 %. 2 . Normal right ventricular size. Normal right ventricular systolic function. 3 . No significant valvular abnormalities. Yolanda Lilly NP Cardiology:This visi t has been a part of the consistent, comprehensive, and ongoing management of the chronic medical condition(s) listed above for the patient. D iscussion of benefits for remote patient monitoring took place. Patient gives consent for remote monitoring of physiologic parameters including, but not limited to, weight, blood pressure, pulse oximetry, respiratory flow rate. & #13; B P today: 148/94 P rior BP: 114/70 (03/28/2023) His updated medication list for this problem includes: Enalapril Maleate 10 Mg Tablet (Enalapril maleate) ..... Take 1 tablet by mouth daily Carvedilol 3.125 Mg Tablet (Carvedilol) ..... Take 1 tablet by mouth twice daily Aspirin 325 Mg Tablet (Aspirin) ..... Tablet by mouth once a day Yolanda Lilly NP Cardiology:This visi t has been a part of the consistent, comprehensive, and ongoing management of the chronic medical condition(s) listed above for the patient. CONCLUSIONS: 1 . Normal left ventricular systolic function. Normal left ventricular size. Normal left ventricular wall thickness. There is E to A w ave reversal consistent with impaired LV relaxation. E/E': 11.3 Left ventricular ejection fraction is measured at 55 %. 2 . Normal right ventricular size. Normal right ventricular systolic function. 3 . No significant valvular abnormalities E lectronically signed by Wendi Mcclendon MD on 09/25/2022 at 5:04 PM Nuclear CONCLUSIONS: 1 . Normal sinus rhythm. Poor R wave progression. 2 . Normal Regadenoson ECG with no ischemic ST or T changes, following vasodilator stress. 3 . Normal left ventricle size. 4 . Left Ventricular Ejection Fraction is 52 % TID: 1.02. 5 . Abnormal perfusion imaging in the mid inferior region with a moderate perfusion defect, which is large in size and and a ppears fixed. March 28, 2023 S IMILAR INFERIOR DEFECT ON PRIOR STUDY September 26, 2023 N o current symptoms Yolanda Lilly NP Cardiology: H is updated medication list for this problem includes: Carvedilol 3.125 Mg Tablet (Carvedilol) ..... Take 1 tablet by mouth twice daily Enalapril Maleate 10 Mg Tablet (Enalapril maleate) ..... Take 1 tablet by mouth daily Aspirin 325 Mg Tablet (Aspirin) ..... Tablet by mouth once a day BP today: 114/70 P rior BP: 129/80 (09/25/2022) Prior 10 Yr Risk Heart Disease: N/A (07/21/2013) Labs Reviewed: C reat: 0.80 (05/24/2013) C hol: 169 (08/04/2016) HDL: 48 (08/04/2016) LDL: 98 MG/DL (CALC) (08/04/2016) T (08/04/2016) Wendi Mcclendon MD Cardiology:CONCLUSIO NS: 1 . Normal left ventricular systolic function. Normal left ventricular size. Normal left ventricular wall thickness. There is E to A w ave reversal consistent with impaired LV relaxation. E/E': 11.3 Left ventricular ejection fraction is measured at 55 %. 2 . Normal right ventricular size. Normal right ventricular systolic function. 3 . No significant valvular abnormalities E lectronically signed by Wendi Mcclendon MD on 09/25/2022 at 5:04 PM Nuclear CONCLUSIONS: 1 . Normal sinus rhythm. Poor R wave progression. 2 . Normal Regadenoson ECG with no ischemic ST or T changes, following vasodilator stress. 3 . Normal left ventricle size. 4 . Left Ventricular Ejection Fraction is 52 % TID: 1.02. 5 . Abnormal perfusion imaging in the mid inferior region with a moderate perfusion defect, which is large in size and and a ppears fixed. March 28, 2023 S IMILAR INFERIOR DEFECT ON PRIOR STUDY Wendi Mcclendon MD Cardiology: N eeds work up for SOB> He had PFTS done which were okay March 28, 2023 Home sleep study shows an AHI of 25.1 which is consistent with moderate CALLUM. Mean oxygen saturation of 95%, with t he lowest being 87% T he patient is using CPAP on a regular basis. The patient has been benefiting from therapy and should continue use. Wendi Mcclendon MD Cardiology:order tel emonitor H AD PVCs ON EKG WILL HAVE HIM WEAR A 24 HR TELE MONITOR AND CHECK GAURAV STRESS FOR ISCHEMIC. echo showed normal LV function p rior hx of stent to LAD & #13;CONCLUSIONS stress from 01/02/21 1 . Normal sinus rhythm. Poor R wave progression. 2 . Normal Exercise Gee protocol ECG with no ischemic ST or T changes. There is no ECG evidence of myocardial ischemia w ith exercise. 3 . Frequent PVCs seen during stress portion of the exam. 4 . Left Ventricular Ejection Fraction is 53 %. TID: 0.86. 5 . Abnormal perfusion imaging in the inferior wall with a moderate perfusion defect and is not reversible. 6 . Diaphragmatic attenuation artifact noted affecting inferior wall. Wendi Mcclendon MD Cardiology:Would rafael efit from reduction in carbs. reviewed with him about his diet . trigs 175 Wendi Mcclendon MD Cardiology: N eeds work up for SOB> He had PFTS done which were okay Wendi Mcclendon MD Cardiology: H AD PVCs ON EKG WILL HAVE HIM WEAR A 24 HR TELE MONITOR AND CHECK GAURAV STRESS FOR ISCHEMIC. echo showed normal LV function p rior hx of stent to LAD CONCLUSIONS stress from 01/02/21 1 . Normal sinus rhythm. Poor R wave progression. 2 . Normal Exercise Gee protocol ECG with no ischemic ST or T changes. There is no ECG evidence of myocardial ischemia w ith exercise. 3 . Frequent PVCs seen during stress portion of the exam. 4 . Left Ventricular Ejection Fraction is 53 %. TID: 0.86. 5 . Abnormal perfusion imaging in the inferior wall with a moderate perfusion defect and is not reversible. 6 . Diaphragmatic attenuation artifact noted affecting inferior wall. Wendi Mcclendon MD Cardiology: Remains on 325 Aspir in. Wendi Mcclendon MD Cardiology: H is updated medication list for this problem includes: Carvedilol 3.125 Mg Tablet (Carvedilol) ..... Take 1 tablet by mouth twice daily Enalapril Maleate 10 Mg Tablet (Enalapril maleate) ..... Take 1 tablet by mouth daily Aspirin 325 Mg Tablet (Aspirin) ..... Tablet by mouth once a day BP today: 116/73 P rior BP: 135/83 (06/27/2021) Prior 10 Yr Risk Heart Disease: N/A (07/21/2013) Labs Reviewed: C reat: 0.80 (05/24/2013) C hol: 169 (08/04/2016) HDL: 48 (08/04/2016) LDL: 98 MG/DL (CALC) (08/04/2016) T (08/04/2016) Wendi Mcclendon MD Cardiology: C ould have worsening CHF. CHeck echo since he is SOB> H is updated medication list for this problem includes: Carvedilol 3.125 Mg Tablet (Carvedilol) ..... Take 1 tablet by mouth twice daily Enalapril Maleate 10 Mg Tablet (Enalapril maleate) ..... Take 1 tablet by mouth daily Aspirin 325 Mg Tablet (Aspirin) ..... Tablet by mouth once a day Wendi Mcclendon MD Cardiology: N eeds work up for SOB> Wendi Mcclendon MD Cardiology: N eeds cardiac work up.History of LAD stents. Check echo, nuclear stress, BNP. Wendi Mcclendon MD Cardiology: M arch 2020 Echo C ONCLUSIONS: 1 . Normal left ventricular systolic function. Normal left ventricular size. Normal left ventricular wall thickness. There is E to A w ave reversal consistent with impaired LV relaxation. E/E': 11.8. Left ventricular ejection fraction is measured at 55 %. 2 . Normal right ventricular size. Normal right ventricular systolic function. 3 . There is trace physiologic mitral valve regurgitation. 4 . There is trace physiologic tricuspid valve regurgitation. 5 . There is trace physiologic pulmonic valve regurgitation. Had repeat echo done 07/30/2020, no sig changes compareed to previous C ONCLUSIONS: 1 . Normal left ventricular systolic function. Normal left ventricular size. Normal left ventricular wall thickness. Normal left v entricular diastolic function. Left ventricular ejection fraction is measured at 55 %. 2 . Normal right ventricular size. Normal right ventricular systolic function. 3 . No significant valvular abnormalities. 4 . Technically difficult study, secondary to poor acoustic windows E lectronically signed by Wendi Mcclendon MD on 08/07/2020 at 2:50 PM Wendi Mcclendon MD Cardiology:Check lip id panel. H is updated medication list for this problem includes: Atorvastatin 20 Mg Tablet (Atorvastatin) ..... Take 1 tablet by mouth daily Wendi Mcclendon MD Cardiology: anu gifford echo R emains on ASA Wendi Mcclendon MD Cardiology: P rior Hx of: NSTEMI in 05/2013 where he had Percutaneous transluminal coronary angioplasty stenting of high-grade 100% BREANA I 0 flow LAD in the proximal segment, treated with a 2.75 x 38 mm Promus PREMIER drug-eluting stent; followed by direct stenting of mid LAD 80% lesion, treated with a 2.75 x 20 mm Promus PREMIER drug-eluting stent in 05/2013. Was recently seen on July 31, 2016 Feels well.. No new events. Had regular stress test done where he achieved 10 METS. Currently, BP is well controlled. 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 since he had SOB on prior office visit he had a nuclear stress test done as well as an echo and prior abdominal aorta ultrasound. Nuclear 10/29/2016Summary 1 . Abnormal myocardial imaging after vasodilator stress with Regadenoson. 2 . There is a small fixed inferior wall defect consistent with infarct 3 . Normal left ventricular systolic function with a calculated ejection fraction of 51%. March 24, 2020 Anu gifford nuc study this year June 23, 2020 O rder new stress December 15, 2020 S tress has to be done, he did not compelte Wendi Mcclendon MD Cardiology: C onclusions: Minimal airway obstruction is present suggesting small airway disease. P ulmonary Function Diagnosis: M inimal Obstructive Airways Disease October 13, 2019 N otes improvement in his breathing overall. Using CPAP. The patient is using CPAP on a regular basis. The patient has been benefiting from therapy and should continue use. June 23, 2020 The patient is using CPAP on a regular basis. The patient has been benefiting from therapy and should continue use. Wendi Mcclendon MD Cardiology: C ONCLUSIONS: 1 . Normal left ventricular systolic function. Normal left ventricular size. Normal left ventricular wall thickness. There is E to A w ave reversal consistent with impaired LV relaxation. E/E': 11.8. Left ventricular ejection fraction is measured at 55 %. 2 . Normal right ventricular size. Normal right ventricular systolic function. 3 . There is trace physiologic mitral valve regurgitation. 4 . There is trace physiologic tricuspid valve regurgitation. 5 . There is trace physiologic pulmonic valve regurgitation. December 15, 2020 E F was preserved, SOB may not be related to CAD, intermittently using CPAP, advised to use it regularly Wendi Mcclendon MD Cardiology: T he patient is using CPAP on a regular basis. The patient has been benefiting from therapy and should continue use. Wendi Mcclendon MD Cardiology: H AD PVCs ON EKG WILL HAVE HIM WEAR A 24 HR TELE MONITOR AND CHECK GAURAV STRESS FOR ISCHEMIC. Wendi Mcclendon MD Cardiology: anu gifford echo R jo on ASA Wendi Mcclendon MD Cardiology: Sam reaves Hx of: NSTEMI in 05/2013 where he had Percutaneous transluminal coronary angioplasty stenting of high-grade 100% BREANA I 0 flow LAD in the proximal segment, treated with a 2.75 x 38 mm Promus PREMIER drug-eluting stent; followed by direct stenting of mid LAD 80% lesion, treated with a 2.75 x 20 mm Promus PREMIER drug-eluting stent in 05/2013. Was recently seen on July 31, 2016 Feels well.. No new events. Had regular stress test done where he achieved 10 METS. Currently, BP is well controlled. 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 since he had SOB on prior office visit he had a nuclear stress test done as well as an echo and prior abdominal aorta ultrasound. Nuclear 10/29/2016Summary 1 . Abnormal myocardial imaging after vasodilator stress with Regadenoson. 2 . There is a small fixed inferior wall defect consistent with infarct 3 . Normal left ventricular systolic function with a calculated ejection fraction of 51%. March 24, 2020 Anu gifford nuc study this year June 23, 2020 O rder new stress December 15, 2020 S tress has to be done, he did not compelte Wendi Mcclendon MD Cardiology: C ONCLUSIONS: 1 . Normal left ventricular systolic function. Normal left ventricular size. Normal left ventricular wall thickness. There is E to A w ave reversal consistent with impaired LV relaxation. E/E': 11.8. Left ventricular ejection fraction is measured at 55 %. 2 . Normal right ventricular size. Normal right ventricular systolic function. 3 . There is trace physiologic mitral valve regurgitation. 4 . There is trace physiologic tricuspid valve regurgitation. 5 . There is trace physiologic pulmonic valve regurgitation. December 15, 2020 E F was preserved, SOB may not be related to CAD, intermittently using CPAP, advised to use it regularly Wendi Mcclendon MD Cardiology: F aram with Arturo Vilma is updated medication list for this problem includes: Lipitor 20 Mg Oral Tablet (Atorvastatin calcium) ..... One tab. daily Wendi Mcclendon MD Cardiology:The patie nt is using CPAP on a regular basis. The patient has been benefiting from therapy and should continue use. Wendi Mcclendon MD Cardiology: B P today: 150/88 P rior BP: 130/70 (06/23/2020) Prior 10 Yr Risk Heart Disease: N/A (07/21/2013) Labs Reviewed: C reat: 0.80 (05/24/2013) C hol: 169 (08/04/2016) HDL: 48 (08/04/2016) LDL: 98 MG/DL (CALC) (08/04/2016) T (08/04/2016) His updated medication list for this problem includes: Enalapril Maleate 10 Mg Tablet (Enalapril maleate) ..... Take 1 tablet by mouth daily Aspirin 325 Mg Oral Tablet (Aspirin) ..... Once daily Carvedilol 3.125 Mg Oral Tablet (Carvedilol) ..... One tab twice daily Wendi Mcclendon MD Cardiology: N o new symptoms. C onclusions: 1 . Mild plaque with less than 50% stenosis of the internal carotid arteries bilaterally. 2 . Vertebral flow is antegrade bilaterally.Check carotid doppler. Hasnt had one done in 3 years. Ty hx of carotid stenosis. December 15, 2020 N o significant changes in carotid u/s C ONCLUSIONS: 1 . Mild plaque with less than 50% stenosis of the internal carotid arteries bilaterally. 2 . Vertebral flow is antegrade bilaterally. E lectronically signed by Wendi Mcclendon MD on 08/07/2020 at 2:19 PM Wendi Mcclendon MD Cardiology: C onclusions: Minimal airway obstruction is present suggesting small airway disease. P ulmonary Function Diagnosis: M inimal Obstructive Airways Disease October 13, 2019 N otes improvement in his breathing overall. Using CPAP. The patient is using CPAP on a regular basis. The patient has been benefiting from therapy and should continue use. June 23, 2020 The patient is using CPAP on a regular basis. The patient has been benefiting from therapy and should continue use. Wendi Mcclendon MD Cardiology: M arch 2019 Echo C ONCLUSIONS: 1 . Normal left ventricular systolic function. Normal left ventricular size. Normal left ventricular wall thickness. There is E to A w ave reversal consistent with impaired LV relaxation. E/E': 11.8. Left ventricular ejection fraction is measured at 55 %. 2 . Normal right ventricular size. Normal right ventricular systolic function. 3 . There is trace physiologic mitral valve regurgitation. 4 . There is trace physiologic tricuspid valve regurgitation. 5 . There is trace physiologic pulmonic valve regurgitation. Had repeat echo done 07/30/2020, no sig changes compareed to previous C ONCLUSIONS: 1 . Normal left ventricular systolic function. Normal left ventricular size. Normal left ventricular wall thickness. Normal left v entricular diastolic function. Left ventricular ejection fraction is measured at 55 %. 2 . Normal right ventricular size. Normal right ventricular systolic function. 3 . No significant valvular abnormalities. 4 . Technically difficult study, secondary to poor acoustic windows E lectronically signed by Wendi Mcclendon MD on 08/07/2020 at 2:50 PM Wendi Mcclendon MD Cardiology:Follows jose Esparza is updated medication list for this problem includes: Lipitor 20 Mg Oral Tablet (Atorvastatin calcium) ..... One tab. daily Wendi Mcclendon MD Cardiology: P rior Hx of: NSTEMI in 05/2013 where he had Percutaneous transluminal coronary angioplasty stenting of high-grade 100% BREANA I 0 flow LAD in the proximal segment, treated with a 2.75 x 38 mm Promus PREMIER drug-eluting stent; followed by direct stenting of mid LAD 80% lesion, treated with a 2.75 x 20 mm Promus PREMIER drug-eluting stent in 05/2013. Was recently seen on July 31, 2016 Feels well.. No new events. Had regular stress test done where he achieved 10 METS. Currently, BP is well controlled. 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 since he had SOB on prior office visit he had a nuclear stress test done as well as an echo and prior abdominal aorta ultrasound. Nuclear 10/29/2016Summary 1 . Abnormal myocardial imaging after vasodilator stress with Regadenoson. 2 . There is a small fixed inferior wall defect consistent with infarct 3 . Normal left ventricular systolic function with a calculated ejection fraction of 51%. March 24, 2020 C heck nuc study this year June 23, 2020 O rder new stress Wendi Mcclendon MD Cardiology:check ech o R jo on ASA Wendi Mcclendon MD Cardiology: C onclusions: Minimal airway obstruction is present suggesting small airway disease. P ulmonary Function Diagnosis: M inimal Obstructive Airways Disease October 13, 2019 N otes improvement in his breathing overall. Using CPAP. The patient is using CPAP on a regular basis. The patient has been benefiting from therapy and should continue use. June 23, 2020 The patient is using CPAP on a regular basis. The patient has been benefiting from therapy and should continue use. Wendi Mcclendon MD Cardiology follow up : Judi osorio on ASA and neg exercise stress test. Wendi Mcclendon MD Cardiology follow up : B P today: 120/74 P rior BP: 117/81 (10/13/2019) Prior 10 Yr Risk Heart Disease: N/A (07/21/2013) Labs Reviewed: C reat: 0.80 (05/24/2013) C hol: 169 (08/04/2016) HDL: 48 (08/04/2016) LDL: 98 MG/DL (CALC) (08/04/2016) T (08/04/2016) Wendi Mcclendon MD Cardiology follow up : Sam reaves Hx of: NSTEMI in 05/2013 where he had Percutaneous transluminal coronary angioplasty stenting of high-grade 100% BREANA I 0 flow LAD in the proximal segment, treated with a 2.75 x 38 mm Promus PREMIER drug-eluting stent; followed by direct stenting of mid LAD 80% lesion, treated with a 2.75 x 20 mm Promus PREMIER drug-eluting stent in 05/2013. Was recently seen on July 31, 2016 F eels well.. No new events. Had regular stress test done where he achieved 10 METS. Currently, BP is well controlled. 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 since he had SOB on prior office visit he had a nuclear stress test done as well as an echo and prior abdominal aorta ultrasound. Nuclear 10/29/2016Summary 1 . Abnormal myocardial imaging after vasodilator stress with Regadenoson. 2 . There is a small fixed inferior wall defect consistent with infarct 3 . Normal left ventricular systolic function with a calculated ejection fraction of 51%. March 24, 2020 C heck nuc study this year Wendi Mcclendon MD Cardiology follow up :April 2019 Echo C ONCLUSIONS: 1 . Normal left ventricular systolic function. Normal left ventricular size. Normal left ventricular wall thickness. There is E to A w ave reversal consistent with impaired LV relaxation. E/E': 11.8. Left ventricular ejection fraction is measured at 55 %. 2 . Normal right ventricular size. Normal right ventricular systolic function. 3. There is trace physiologic mitral valve regurgitation. 4 . There is trace physiologic tricuspid valve regurgitation. 5 . There is trace physiologic pulmonic valve regurgitation. Wendi Mcclendon MD Cardiology OK TO SIG N:HAD PVCs ON EKG WILL HAVE HIM WEAR A 24 HR TELE MONITOR AND CHECK GAURAV STRESS FOR ISCHEMIC. Wendi Mcclendon MD Cardiology OK TO SIG N: H is updated medication list for this problem includes: Enalapril Maleate 10 Mg Oral Tablet (Enalapril maleate) ..... One tab daily Aspirin 325 Mg Oral Tablet (Aspirin) ..... Once daily Carvedilol 3.125 Mg Oral Tablet (Carvedilol) ..... One tab twice daily BP today: 117/81 P rior BP: 124/80 (03/31/2019) Prior 10 Yr Risk Heart Disease: N/A (07/21/2013) Labs Reviewed: C reat: 0.80 (05/24/2013) C hol: 169 (08/04/2016) HDL: 48 (08/04/2016) LDL: 98 MG/DL (CALC) (08/04/2016) T (08/04/2016) Wendi Mcclendon MD Cardiology OK TO SIG N:CONCLUSIONS: 1 . Normal left ventricular systolic function. Normal left ventricular size. Normal left ventricular wall thickness. There is E to A w ave reversal consistent with impaired LV relaxation. E/E': 11.8. Left ventricular ejection fraction is measured at 55 %. 2 . Normal right ventricular size. Normal right ventricular systolic function. 3 . There is trace physiologic mitral valve regurgitation. 4 . There is trace physiologic tricuspid valve regurgitation. 5 . There is trace physiologic pulmonic valve regurgitation. H is updated medication list for this problem includes: Enalapril Maleate 10 Mg Oral Tablet (Enalapril maleate) ..... One tab daily Aspirin 325 Mg Oral Tablet (Aspirin) ..... Once daily Carvedilol 3.125 Mg Oral Tablet (Carvedilol) ..... One tab twice daily Wendi Mcclendon MD Cardiology OK TO SIG N: M ay have weakened LV function, will check echo. Has know CAD, will check for patency of stents with nuclear stress and echo. C ONCLUSIONS: 1 . Normal left ventricular systolic function. Normal left ventricular size. Normal left ventricular wall thickness. There is E to A w ave reversal consistent with impaired LV relaxation. E/E': 11.8. Left ventricular ejection fraction is measured at 55 %. 2 . Normal right ventricular size. Normal right ventricular systolic function. 3 . There is trace physiologic mitral valve regurgitation. 4 . There is trace physiologic tricuspid valve regurgitation. 5 . There is trace physiologic pulmonic valve regurgitation. Wendi Mcclendon MD Cardiology OK TO SIG N:Conclusions: Minimal airway obstruction is present suggesting small airway disease. P ulmonary Function Diagnosis: M inimal Obstructive Airways Disease October 13, 2019 N otes improvement in his breathing overall. Using CPAP. The patient is using CPAP on a regular basis. The patient has been benefiting from therapy and should continue use. Wendi Mcclendon MD Cardiology follow up : P rior Hx of: NSTEMI in 05/2013 where he had Percutaneous transluminal coronary angioplasty stenting of high-grade 100% BREANA I 0 flow LAD in the proximal segment, treated with a 2.75 x 38 mm Promus PREMIER drug-eluting stent; followed by direct stenting of mid LAD 80% lesion, treated with a 2.75 x 20 mm Promus PREMIER drug-eluting stent in 05/2013. Was recently seen on July 31, 2016 F eels well.. No new events. Had regular stress test done where he achieved 10 METS. Currently, BP is well controlled. 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 since he had SOB on prior office visit he had a nuclear stress test done as well as an echo and prior abdominal aorta ultrasound. Nuclear 10/29/2016Summary 1 . Abnormal myocardial imaging after vasodilator stress with Regadenoson. 2 . There is a small fixed inferior wall defect consistent with infarct 3 . Normal left ventricular systolic function with a calculated ejection fraction of 51%. Wendi Mcclendon MD Cardiology follow up : R emains on ASA and neg exercise stress test. Wendi Mcclendon MD Cardiology follow up :May have weakened LV function, will check echo. Has know CAD, will check for patency of stents with nuclear stress and echo. Wendi Mcclendon MD Cardiology follow up : H is updated medication list for this problem includes: Enalapril Maleate 10 Mg Oral Tablet (Enalapril maleate) ..... One tab daily Aspirin 325 Mg Oral Tablet (Aspirin) ..... Once daily Carvedilol 3.125 Mg Oral Tablet (Carvedilol) ..... Twice daily BP today: 124/80 P rior BP: 116/70 (07/24/2018) Prior 10 Yr Risk Heart Disease: N/A (07/21/2013) Labs Reviewed: C reat: 0.80 (05/24/2013) C hol: 169 (08/04/2016) HDL: 48 (08/04/2016) LDL: 98 MG/DL (CALC) (08/04/2016) T (08/04/2016) Wendi Mcclendon MD Cardiology follow up :Check slee p study. Wendi Mcclendon MD Cardiology follow up :Check PFTs . Likely has CALLUM. Wendi Mcclendon MD Cardiology follow up : D DADA WANT SLEEP STUDY DONE Wendi Mcclendon MD Cardiology follow up :Followed by PCP H is updated medication list for this problem includes: Lipitor 20 Mg Oral Tablet (Atorvastatin calcium) ..... One tab. daily Wendi Mcclendon MD Cardiology follow up : H is updated medication list for this problem includes: Enalapril Maleate 10 Mg Oral Tablet (Enalapril maleate) ..... One tab daily Aspirin 325 Mg Oral Tablet (Aspirin) ..... Once daily Carvedilol 3.125 Mg Oral Tablet (Carvedilol) ..... Twice daily Wendi Mcclendon MD Cardiology follow up :No new symptoms. C onclusions: 1 . Mild plaque with less than 50% stenosis of the internal carotid arteries bilaterally. 2 . Vertebral flow is antegrade bilaterally.Check carotid doppler. Hasnt had one done in 3 years. Prios hx of carotid stenosis. Wendi Mcclendon MD Cardiology [facility] Cardiology follow up : E F 40% IN 05/2013 E cho EF 60% in 11/2015 Nuclear 10/29/2016Summary 1 . Abnormal myocardial imaging after vasodilator stress with Regadenoson. 2 . There is a small fixed inferior wall defect consistent with infarct 3 . Normal left ventricular systolic function with a calculated ejection fraction of 51%. Echo 10/28/2016Conclusions: 1 . Normal left ventricular systolic function. Normal left ventricular size. Normal left ventricular wall t hickness. There is E to A wave reversal consistent with impaired LV relaxation. Normal E/E` 7.0. Left v entricular ejection fraction is estimated at 55 %. 2 . No significant valvular abnormalities. 3 . Technically difficult study, secondary to poor acoustic windows. N o new studies noted. Will order in 2019. Wendi Mcclendon MD Cardiology Follow up : B P controlled. On Coreg and Vasotec Wendi Mcclendon MD Cardiology Follow up : Nikolai OESNT WANT SLEEP STUDY DONE Wendi Mcclendon MD Cardiology Follow up : E F 40% IN 05/2013 E cho EF 60% in 11/2015 Nuclear 10/29/2016Summary 1 . Abnormal myocardial imaging after vasodilator stress with Regadenoson. 2 . There is a small fixed inferior wall defect consistent with infarct 3 . Normal left ventricular systolic function with a calculated ejection fraction of 51%. Echo 10/28/2016Conclusions: 1 . Normal left ventricular systolic function. Normal left ventricular size. Normal left ventricular wall t hickness. There is E to A wave reversal consistent with impaired LV relaxation. Normal E/E` 7.0. Left v entricular ejection fraction is estimated at 55 %. 2 . No significant valvular abnormalities. 3 . Technically difficult study, secondary to poor acoustic windows. Wendi Mcclendon MD Cardiology Follow up :Prior Hx of: NSTEMI in 05/2013 where he had Percutaneous transluminal coronary angioplasty stenting of high-grade 100% BREANA I 0 flow LAD in the proximal segment, treated with a 2.75 x 38 mm Promus PREMIER drug-eluting stent; followed by direct stenting of mid LAD 80% lesion, treated with a 2.75 x 20 mm Promus PREMIER drug-eluting stent in 05/2013. Was recently seen on July 31, 2016 F eels well.. No new events. Had regular stress test done where he achieved 10 METS. Currently, BP is well controlled. 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 since he had SOB on prior office visit he had a nuclear stress test done as well as an echo and prior abdominal aorta ultrasound. Nuclear 10/29/2016Summary 1 . Abnormal myocardial imaging after vasodilator stress with Regadenoson. 2 . There is a small fixed inferior wall defect consistent with infarct 3 . Normal left ventricular systolic function with a calculated ejection fraction of 51%. Wendi Mcclendon MD Cardiology:BP controlled. On Cor eg and Vasotec Wendi Mcclendon MD Cardiology:Remains o n ASA and neg exercise stress test. Wendi Mcclendon MD Cardiology: E F 40% IN 05/2013 E cho EF 60% in 11/2015 Wendi Mcclendon MD Cardiology:Check car otid doppler. Hasnt had one done in 3 years. Prios hx of carotid stenosis. Wendi Mcclendon MD Cardiology Wendi Mcclendon MD Cardiology: D DADA WANT SLEEP STUDY DONE Wendi Mcclendon MD Cardiology Follow u p:? SOB= ISCHEMIA O rders: 9 9215 HIGH Complex (CPT-80036) S TR - Nuclear (CPT-59874) C omplete Echo (CPT-68149) Wendi Mcclendon MD Cardiology Follow u p:CONTROLLED H is updated medication list for this problem includes: Aspirin 325 Mg Tabs (Aspirin) ..... Once daily Enalapril Maleate 10 Mg Tabs (Enalapril maleate) ..... Once daily Carvedilol 3.125 Mg Tabs (Carvedilol) ..... Twice daily Wendi Mcclendon MD Cardiology Follow u p:SAYS PCP DOES BLOOD WORK TO FOLLOW H is updated medication list for this problem includes: Lipitor 20 Mg Tabs (Atorvastatin calcium) ..... One tab. daily Wendi Mcclendon MD Cardiology Follow u p:? ISCHEMIA WILL NEED NUCLEAR STRESS H is updated medication list for this problem includes: Aspirin 325 Mg Tabs (Aspirin) ..... Once daily Enalapril Maleate 10 Mg Tabs (Enalapril maleate) ..... Once daily Carvedilol 3.125 Mg Tabs (Carvedilol) ..... Twice daily Orders: 9 9215 HIGH Complex (CPT-63074) S TR - Nuclear (CPT-89529) C omplete Echo (CPT-49276) Wendi Mcclendon MD Cardiology Follow u p:DOESNT WAN T SLEEP STUDY DONE Wendi Mcclendon MD Cardiology: H is updated medication list for this problem includes: Lipitor 20 Mg Tabs (Atorvastatin calcium) ..... One tab. daily Wendi Mcclendon MD Cardiology: B P today: 138/91 P rior BP: 136/91 (09/02/2014) Wendi Mcclendon MD Cardiology:WILL DO S TRESS NUCLEAR-- PATIENT HAS FATIGUE, COULD BE RELATED TO CAD VS CALLUM. Wendi Mcclendon MD Cardiology:WILL HAVE PT DO HOME SLEEP STUDY Wendi Mcclendon MD fu:GETTING LIPID STICK TODAY Lloyd Mcclendon MD fu:EF 40% IN 05/2013 W ILL DO ECHO Wendi Mcclendon MD fu:BP 136/91 Wendi Mcclendon MD fu Wendi Mcclendon MD Follow up : H is updated medication list for this problem includes: Crestor 20 Mg Tabs (Rosuvastatin calcium) ..... One tab. daily Aspirin 325 Mg Tabs (Aspirin) ..... Once daily Plavix 75 Mg Tabs (Clopidogrel bisulfate) ..... Once daily Enalapril Maleate 10 Mg Tabs (Enalapril maleate) ..... Once daily Carvedilol 3.125 Mg Tabs (Carvedilol) ..... Twice daily Orders: C omplete Echo (CPT-03040) S leep Study (*) E KG (CPT-65105) Wendi Mcclendon MD Follow up : H is updated medication list for this problem includes: Aspirin 325 Mg Tabs (Aspirin) ..... Once daily Enalapril Maleate 10 Mg Tabs (Enalapril maleate) ..... Once daily Carvedilol 3.125 Mg Tabs (Carvedilol) ..... Twice daily Orders: C omplete Echo (CPT-70892) S leep Study (*) E KG (CPT-30124) Wendi Mcclendon MD Cholesterol manageme nt:Patient presents for lipid clinic. LDL still not at goal. He is having complaints of muscle aches, fatigue and memory disturbance on increased dose of lipitor. This will be discontinued and he is given samples of Crestor 20mg. He has declined to participate in any of our research programs. He will return to lipid clinic in 2 months. He will keep upcoming scheduled appt with Dr. Mcclendon. The following medications were removed from the medication list: Lipitor 80 Mg Tabs (Atorvastatin calcium) ..... One tab. daily His updated medication list for this problem includes: Crestor 20 Mg Tabs (Rosuvastatin calcium) ..... One tab. daily Jazmin Conway NP Cholesterol :LDL sti ll not at goal. Increased Lipitor to 80mg. Will return to lipid clinic in 3 months. H is updated medication list for this problem includes: Lipitor 80 Mg Tabs (Atorvastatin calcium) ..... One tab. daily Jazmin Conway NP follow up: H is updated medication list for this problem includes: Aspirin 325 Mg Tabs (Aspirin) ..... Once daily Enalapril Maleate 10 Mg Tabs (Enalapril maleate) ..... Once daily Carvedilol 3.125 Mg Tabs (Carvedilol) ..... Twice daily Adi Cabrera MD follow up: H is updated medication list for this problem includes: Aspirin 325 Mg Tabs (Aspirin) ..... Once daily Plavix 75 Mg Tabs (Clopidogrel bisulfate) ..... Once daily Enalapril Maleate 10 Mg Tabs (Enalapril maleate) ..... Once daily Carvedilol 3.125 Mg Tabs (Carvedilol) ..... Twice daily Adi Cabrera MD follow up: H is updated medication list for this problem includes: Aspirin 325 Mg Tabs (Aspirin) ..... Once daily Plavix 75 Mg Tabs (Clopidogrel bisulfate) ..... Once daily Enalapril Maleate 10 Mg Tabs (Enalapril maleate) ..... Once daily Carvedilol 3.125 Mg Tabs (Carvedilol) ..... Twice daily Adi Cabrera MD follow up: H is updated medication list for this problem includes: Aspirin 325 Mg Tabs (Aspirin) ..... Once daily Plavix 75 Mg Tabs (Clopidogrel bisulfate) ..... Once daily Enalapril Maleate 10 Mg Tabs (Enalapril maleate) ..... Once daily Carvedilol 3.125 Mg Tabs (Carvedilol) ..... Twice daily Adi Cabrera MD Follow up: H is updated medication list for this problem includes: Aspirin 325 Mg Tabs (Aspirin) ..... Once daily Enalapril Maleate 10 Mg Tabs (Enalapril maleate) ..... Once daily Carvedilol 3.125 Mg Tabs (Carvedilol) ..... Twice daily Wendi Mcclendon MD Lipid clinic: H is updated medication list for this problem includes: Atorvastatin Calcium 40 Mg Tabs (Atorvastatin calcium) ..... Once daily Patient presents for lipid clinic. LDL is above goal. [place] refer to research department. Patient wishes to work on dietary management to bring his LDL down. He will continue current meds and return to lipid clinic in October. Jazmin Conway NP Date Name Complete Echo RPM (remote patient monitoring) Holter Monitor 48 hr Stress Regadenoson HEMOGLOBIN A1c LIPID PANEL PROBNP, N TERMINAL COMPREHENSIVE METABO LIC PANEL, W/EGFR DLCO - 79516 FRC - 18753 FVC - 42879 Stress Regadenoson Complete Echo LIPID PANEL COMPREHENSIVE METABO LIC PANEL, W/EGFR EKG Stress Exercise Card iolite Carotid Duplex Bilat eral Stress Exercise Card iolite Complete Echo Carotid Duplex Bilat eral Stress Regadenoson Holter Monitor 24 Hr Stress Regadenoson DLCO - 02209 FRC - 13386 FVC - 62863 Sleep Study Home Stress Regadenoson Complete Echo Stress Regadenoson Complete Echo HEPATIC FUNCTION [place] EL LIPID PANEL Aorta Duplex Ultraso und (AAA) Carotid Duplex Bilat eral LIPID PANEL Complete Echo STR - Nuclear Sleep Study Home STR - Nuclear Complete Echo Complete Echo Sleep Study Complete Echo Carotid Duplex Bilat eral HISTORY OF PROCEDURES Procedure Date Procedure Name Provider Procedure Notes S tatus Complex e/m visit add on Wendi Mcclendon MD completed EKG Wendi Mcclendon MD completed Complex e/m visit add on Wendi Mcclendon MD completed EKG Wendi Mcclendon MD completed EKG Wendi Mcclendon MD completed EKG Wendi Mcclendon MD completed Spirometry Wendi Mcclendon MD completed FVC / MVV with bronchodilator - 26339 Wendi Mcclendon MD completed FRC - 26675 Wendi Mcclendon MD completed SpO2 w/o 6min walk/titration Wendi Mcclendon MD completed SVC - 11298 Wendi Mcclendon MD completed DLCO - 01009 Wendi Mcclendon MD completed EKG Wendi Mcclendon MD completed EKG Wendi Mcclendon MD completed EKG Wendi Mcclendon MD completed EKG Wendi Mcclendon MD completed FVC / MVV with bronchodilator - 15163 Wendi Mcclendon MD completed FRC - 70996 Wendi Mcclendon MD completed SpO2 w/o 6min walk/titration Wendi Mcclendon MD completed DLCO - 13138 Wendi Mcclendon MD completed EKG Wendi Mcclendon MD completed EKG Wendi Mcclendon MD completed EKG Wedni Mcclendon MD completed Stress EKG Adi Cabrera MD completed Regadenoson, 4 units Wendi bowen MD completed Cardiolite, 2 units Wendi blair MD completed SPECT Images Adi Cabrera MD complet ed EKG Wendi Mcclendon MD completed SNOMED-CT: [id number] Current Medications Documented Wendi Mcclendon MD completed Stress EKG Tomeka Thortnon MD complet ed EKG Wendi Mcclendon MD completed SNOMED-CT: [id number] Current Medications Documented Wendi Mcclendon MD completed SNOMED-CT: [id number] Physical Exam, Performed: Pulse Exam of Foot Wendi Mcclendon MD completed EKG Wendi Mcclendon MD completed SNOMED-CT: [id number] Current Medications Documented Wendi Mcclendon MD completed EKG Wendi Mcclendon MD completed EKG Wendi Mcclendon MD completed EKG Wendi Mcclendon MD completed EKG Wendi Mcclendon MD completed
--- OUTSIDE RECORDS SUMMARY | 2024-04-27 10:48 | XMS_ITS | Data Portability ---
Author Organization [facility], Main Office Address [address] [place] [address] Care Team Providers Care University Manager Name Role Phone PAL MTZ Primary Care Provider PAL MTZ Referring Provider UMBERTO FLETCHER Transportation Maintenance Worker SHARI TAPIA Fairing Man Assessment No assessment recorded. Plan of Treatment Reminders Order Date Submit Date Provider Last Modified By Organization Details Last Modified Time Details Appointments None recorded. Lab urinalysis, dipstick 2024 025 [email or web address] [facility] [place], [address] [facility] [address], [place], [address], 5 14:06:45 PSA, total, serum or plasma [address] (Lab), [address] [place], [address], 5 09:15:55 glycohemogl obin, total, blood [address] (Lab), [address] [place], [address], 5 09:15:55 CMP, serum or plasma [address] (Lab), [address] [place], [address], 5 09:15:55 microalbumi n, urine [email or web address] (Lab), [address] [place], [address], 5 09:15:55 lipid panel, serum [address] (Lab), [address] [place], [address], 5 09:15:55 urinalysis, dipstick 2023 024 [email or web address] [facility] [address], [facility] [place], [address], 4 16:40:36 culture, urine 2023 024 [facility] (Lab), [address] [place], [address], 4 08:09:53 PSA, total, serum or plasma 2023 024 [facility] (Lab), [address] [place], [address], 4 21:46:13 glycohemogl obin, total, blood 2023 024 [facility] (Lab), [address] [place], [address], 4 20:32:56 CMP, serum or plasma 2023 024 [facility] (Lab), [address] [place], [address], 4 21:16:21 urinalysis, dipstick 2023 024 [email or web address] [facility] (Lab), [address] [place], [address], 4 13:01:01 microalbumi n, urine 2023 024 [facility] (Lab), [address] [place], [address], 4 21:40:03 lipid panel, serum 2023 024 [facility] (Lab), [address] [place], [address], 4 21:16:23 Referral urologist referral - Please call patient to schedule. 2024 025 [place] Carlos Santillan, 4 [facility], [facility] [address], [place], [address], 5 13:47:13 urologist referral 2023 024 [email or web address] Ottoniel Pratt, [address], [address], [place], [address], 4 07:59:11 Procedures None recorded. Surgeries None recorded. Imaging US, duplex, carotid artery - Please call patient to schedule. 2024 025 [email or web address] [facility], [address], [place], [address], 5 09:42:38 Medication Orders oxybutynin chloride ER 10 mg tablet,exte nded release 24 hr 2024 025 [id number], [address], [place], [place], [id number], 5 13:14:02 Patient TargetsNo targets recorded. Patient Instructions Encounter Date Encounter Id Patient Instructions Last Modified By Organization Details Last Modified Time 04/14/2023 [id number] hearing evaluation* [email or web address] Not available 04/28/2023 08:25:20 03/10/2024 [id number] 1. Overactive bladder 2. Parkinson's disease 3. Elevated PSA 4. I will start the patient on oxybutynin XL 10 mg q.day for his overactive bladder symptoms 5. As for his elevated PSA I will send a urine for Exosome 6. A telehealth in about 3-4 weeks [email or web address] Not available 03/10/2024 13:13:27 Reason for Referral Urologist Referral for Prost ate specific antigen above reference range Referring Physician: Pal Mtz, Internal Medicine, Encounter Date: 04/14/2023 Urologist Referral for Prost ate specific antigen above reference range Please call patient to schedule. Referring Physician: Pal Mtz, Internal Medicine, Encounter Date: 03/01/2024 Results Created Date Observation Date Name Description Value Unit Range Abnormal Flag Note LastModifiedBy Organization Detail LastModifiedTime 04/11/19 24 04/11/2023 COLOG UARD cologuard result CANCEL LED - ORDER D not applic able Not Available [facility] (Cologuard Orders Only) [address], [place], [address], 04/11/2023 09:56:35 04/14/1904/14/2023 URINA LYSIS /IRIS W/O MICRO color LIGHT- YELLOW Not Available [facility] (Lab) [address] [place], [address], 04/14/2023 20:13:04 04/14/19 24 04/14/2023 URINA LYSIS /IRIS W/O MICRO appear CLEAR Not Available [facility] (Lab) [address] [place], [address], 04/14/2023 20:13:04 04/14/19 24 04/14/2023 URINA LYSIS /IRIS W/O MICRO specific gravity 1.015 1.001- 1.030 Not Available [facility] (Lab) [address] [place], [address], 04/14/2023 20:13:04 04/14/19 24 04/14/2023 URINA LYSIS /IRIS W/O MICRO pH 5.0 pH_un its 5.0-9. 0 Not Available [facility] (Lab) [address] [place], [address], 04/14/2023 20:13:04 04/14/19 24 04/14/2023 URINA LYSIS /IRIS W/O MICRO leukocytes NEGATI VE j luis/u L negati ve- Not Available [facility] (Lab) [address] [place], [address], 04/14/2023 20:13:04 04/14/19 24 04/14/2023 URINA LYSIS /IRIS W/O MICRO nitrite NEGATI VE negati ve- Not Available [facility] (Lab) [address] [place], [address], 04/14/2023 20:13:04 04/14/19 24 04/14/2023 URINA LYSIS /IRIS W/O MICRO protein NEGATI VE mg/dL negati ve- Not Available [facility] (Lab) [address] [place], [address], 04/14/2023 20:13:04 04/14/19 24 04/14/2023 URINA LYSIS /IRIS W/O MICRO glucose 30 mg/dL normal - abnormal Not Available [facility] (Lab) [address] [place], [address], 04/14/2023 20:13:04 04/14/19 24 04/14/2023 URINA LYSIS /IRIS W/O MICRO ketones NEGATI VE mg/dL negati ve- Not Available [facility] (Lab) [address] [place], [address], 04/14/2023 20:13:04 04/14/19 24 04/14/2023 URINA LYSIS /IRIS W/O MICRO urobilinogen NORMAL mg/dL normal - Not Available [facility] (Lab) [address] [place], [address], 04/14/2023 20:13:04 04/14/19 24 04/14/2023 URINA LYSIS /IRIS W/O MICRO bilirubin NEGATI VE mg/dL negati ve- Not Available [facility] (Lab) [address] [place], [address], 04/14/2023 20:13:04 04/14/19 24 04/14/2023 URINA LYSIS /IRIS W/O MICRO blood NEGATI VE mg/dL negati ve- Not Available [facility] (Lab) [address] [place], [address], 04/14/2023 20:13:04 04/14/19 24 04/14/2023 URINA LYSIS /IRIS W/O MICRO white blood cells 0-8 /i??h pfi?? 0-8 Not Available [facility] (Lab) [address] [place], [address], 04/14/2023 20:13:04 04/14/19 24 04/14/2023 URINA LYSIS /IRIS W/O MICRO red blood cells 0-4 /i??h pfi?? 0-4 Not Available [facility] (Lab) [address] [place], [address], 04/14/2023 20:13:04 04/14/19 24 04/14/2023 URINA LYSIS /IRIS W/O MICRO bacteria NONE Not Available [facility] (Lab) [address] [place], [address], 04/14/2023 20:13:04 04/14/19 24 04/14/2023 URINA LYSIS /IRIS W/O MICRO mucous OCCASI ONAL /i??l pfi?? abnormal Not Available [facility] (Lab) [address] [place], [address], 04/14/2023 20:13:04 04/14/19 24 04/14/2023 URINA LYSIS /IRIS W/O MICRO squamous epithelial OCCASI ONAL /i??l pfi?? abnormal Not Available [facility] (Lab) [address] [place], [address], 04/14/2023 20:13:04 04/14/19 24 04/14/2023 HEMOG LOBIN A1C HA1C 7.5 % 4.0-6. 0 high Diabe vi Scree livier Crite alka: <5.7% Consi stent with absen ce of diabe vi 5.7-6 .4% Consi stent with incre ased risk for diabe vi (pred iabet es) >OR=6 .5% Consi stent with diabe vi REFER ENCE: Diabe vi Care 2016, 39( ppl.1 ):s13 -s22 Not Available [facility] (Lab) [address] [place], [address], 04/14/2023 20:32:56 04/14/19 24 04/14/2023 COMPR EHENS MT METAB OLIC PANEL sodium 136 mmol/ L 137-14 5 low Not Available [facility] (Lab) [address] [place], [address], 04/14/2023 21:16:21 04/14/19 24 04/14/2023 COMPR EHENS MT METAB OLIC PANEL potassium 4.2 mmol/ L 3.5-5. 1 Not Available [facility] (Lab) [address] [place], [address], 04/14/2023 21:16:21 04/14/19 24 04/14/2023 COMPR EHENS MT METAB OLIC PANEL chloride 105 mmol/ L 98-107 Not Available [facility] (Lab) [address] [place], [address], 04/14/2023 21:16:21 04/14/19 24 04/14/2023 COMPR EHENS MT METAB OLIC PANEL carbon dioxide 25 mmol/ L 22-30 Not Available [facility] (Lab) [address] [place], [address], 04/14/2023 21:16:21 04/14/19 24 04/14/2023 COMPR EHENS MT METAB OLIC PANEL anion gap 10.2 mmol/ L 14-22 low Not Available [facility] (Lab) [address] [place], [address], 04/14/2023 21:16:21 04/14/19 24 04/14/2023 COMPR EHENS MT METAB OLIC PANEL glucose 165 mg/dL 70-99 high Not Available [facility] (Lab) [address] [place], [address], 04/14/2023 21:16:21 04/14/19 24 04/14/2023 COMPR EHENS MT METAB OLIC PANEL BUN 10 mg/dL 8-19 Not Available [facility] (Lab) [address] [place], [address], 04/14/2023 21:16:21 04/14/19 24 04/14/2023 COMPR EHENS MT METAB OLIC PANEL creatinine 0.60 mg/dL 0.66-1 .25 low Not Available [facility] (Lab) [address] [place], [address], 04/14/2023 21:16:21 04/14/19 24 04/14/2023 COMPR EHENS MT METAB OLIC PANEL GFR >60 Refer ence Range : [place] ge GFR Healt hy Adult : >60 mL/mi n/1.7 3 m2 Chron ic Kidne y Disea se: 15-60 mL/mi n/1.7 3 m2 Kidne y Failu re: <15/m L/min /1.73 m2 www.n iddk. nih.g ov The MDRD study equat ion has not been valid ated in child ruperto <18 years of age; pregn ant women ; the elder ly >85 years of age; or in some racia l or ethni c subgr oups, such as Hispa nics. Outsi de the valid ated olman eters , estim ated GFR is less accur ate, requi ring clini drew judgm ent on a case- by-ca se basis . Clini drew inter preta tion for other races and ages must be made by the clini slade. The MDRD study equat ion has not been valid ated for the evalu ation of serum creat inine relat ed to nutri nayan l statu s or medic ation usage . For perso ns <18 years of age, a pedia tric GFR calcu lator is avail able on the [facility] websi te: https ://ru harry.landon munson/pr kathyaess ional s/kdo qi/gf r_cal culat or Not Available [facility] (Lab) [address] [place], [address], 04/14/2023 21:16:21 04/14/19 24 04/14/2023 COMPR EHENS MT METAB OLIC PANEL alkaline phosphatase 94 U/L 38-126 Not Available [facility] (Lab) [address] [place], [address], 04/14/2023 21:16:21 04/14/19 24 04/14/2023 COMPR EHENS MT METAB OLIC PANEL alanine aminotransfe rase 14 U/L 0-50 Not Available [facility] (Lab) [address] [place], [address], 04/14/2023 21:16:21 04/14/19 24 04/14/2023 COMPR EHENS MT METAB OLIC PANEL aspartate aminotransfe rase 18 U/L 15-46 Not Available [facility] (Lab) [address] [place], [address], 04/14/2023 21:16:21 04/14/19 24 04/14/2023 COMPR EHENS MT METAB OLIC PANEL bilirubin, total 1.00 mg/dL 0.20-1 .30 Not Available [facility] (Lab) [address] [place], [address], 04/14/2023 21:16:21 04/14/19 24 04/14/2023 COMPR EHENS MT METAB OLIC PANEL calcium 9.3 mg/dL 8.4-10 .2 Not Available [facility] (Lab) [address] [place], [address], 04/14/2023 21:16:21 04/14/19 24 04/14/2023 COMPR EHENS MT METAB OLIC PANEL total protein 6.6 g/dL 6.3-8. 2 Not Available [facility] (Lab) [address] [place], [address], 04/14/2023 21:16:21 04/14/19 24 04/14/2023 COMPR EHENS MT METAB OLIC PANEL albumin 3.7 g/dL 3.0-4. 4 Not Available [facility] (Lab) [address] [place], [address], 04/14/2023 21:16:21 04/14/19 24 04/14/2023 COMPR EHENS MT METAB OLIC PANEL globulin 2.9 g/dL 2.6-4. 2 Not Available [facility] (Lab) [address] [place], [address], 04/14/2023 21:16:21 04/14/19 24 04/14/2023 COMPR EHENS MT METAB OLIC PANEL A/G ratio 1.3 ratio 1.0-2. 0 Not Available [facility] (Lab) [address] [place], [address], 04/14/2023 21:16:21 04/14/19 24 04/14/2023 LIPID PANEL cholesterol 159 mg/dL 140-19 9 NIH CHRISTIANO NSUS RECOM MENDA TION FOR ADRIAN STERO L: ADULT CHILD LOW RISK: <200 <170 BORDE RLINE : <200- 239 ----- HIGH RISK: >240 >200 Not Available [facility] (Lab) [address] [place], [address], 04/14/2023 21:16:23 04/14/19 24 04/14/2023 LIPID PANEL triglyceride s 115 mg/dL 0-150 NIH CHRISTIANO NSUS REPOR T RECOM MENDA TION FOR TRIGL YCERI COLE: ADULT CHILD LOW RISK: <150 ----- BODER LINE: 150-1 99 ----- HIGH RISK: >200 ----- Not Available [facility] (Lab) [address] [place], [address], 04/14/2023 21:16:23 04/14/19 24 04/14/2023 LIPID PANEL HDL cholesterol 40 mg/dL 40- Not Available [facility] (Lab) [address] [place], [address], 04/14/2023 21:16:23 04/14/19 24 04/14/2023 LIPID PANEL LDL cholesterol, calculated 96 mg/dL 0-130 [facility] CHRISTIANO NSUS REPOR T RECOM MENDA TIONS FOR LDL: ADULT CHILD LOW RISK <130 <110 (OPTI MAL LDL) <100 ----- BORDE RLINE : 130-1 59 ----- HIGH RISK: >160 >130 A TRIGL YCERI DE RESUL T >400 INVAL IDATE S THE CALCU LATIO N FOR LDL FRACT IONAT ION - THE LDL RESUL T WILL NOT BE REPOR RIC. Not Available [facility] (Lab) [address] [place], [address], 04/14/2023 21:16:23 04/14/19 24 04/14/2023 MICRO ALBUM IN RANDO M URINE microalbumin , urine <6.0 mg/L 0.0-16 .6 Not Available [facility] (Lab) [address] [place], [address], 04/14/2023 21:40:03 04/14/19 24 04/14/2023 PSA, TOTAL PSA, total 8.23 NG/mL 0.00-4 .00 high Not Available [facility] (Lab) [address], [place], [address], 04/14/2023 21:46:13 10/15/19 24 10/15/2023 urina lysis , dipst ick Leukocytes (reference range: negative j luis/ l) Negati ve Not Available [facility] Internal [facility] [address] [place], [address], 10/15/2023 16:09:22 10/15/19 24 10/15/2023 urina lysis , dipst ick Nitrite (reference rage: negative mg/dl) negati ve Not Available [facility] [address] [place], [address], 10/15/2023 16:09:22 10/15/19 24 10/15/2023 urina lysis , dipst ick Urobilinogen (reference range: 0.2-1 mg/dl) 0.[address] [facility] [address] [place], [address], 10/15/2023 16:09:22 10/15/19 24 10/15/2023 urina lysis , dipst ick Protein (reference range: negative mg/dl) Negati ve Not Available [facility] [address] [place], [address], 10/15/2023 16:09:22 10/15/19 24 10/15/2023 urina lysis , dipst ick pH (reference range: 5-7) 5.[address] [facility] [address] [facility] [place], [address], 10/15/2023 16:09:22 10/15/19 24 10/15/2023 urina lysis , dipst ick Blood (reference range: negative Moose/ l) Negati ve Not Available [facility] Internal [facility] [address] [place], [address], 10/15/2023 16:09:22 10/15/19 24 10/15/2023 urina lysis , dipst ick Specific Flowood (reference range: 1.005-1.030) 1.030 Not Available [facility] [address] [place], [address], 10/15/2023 16:09:22 10/15/19 24 10/15/2023 urina lysis , dipst ick Ketone (reference range: negative mg/dl) Negati ve Not Available [facility] [address] [place], [address], 10/15/2023 16:09:22 10/15/19 24 10/15/2023 urina lysis , dipst ick Bilirubin (reference range: negative mg/dl) Negati ve Not Available [facility] [address] [place], [address], 10/15/2023 16:09:22 10/15/19 24 10/15/2023 urina lysis , dipst ick Glucose (reference range: negative mg/dl) [address] [facility] [address] [place], [address], 10/15/2023 16:09:22 10/15/19 24 10/15/2023 urina lysis , dipst ick Appearance Clear Not Available [place] [facility] [address] [place], [address], 10/15/2023 16:09:22 10/15/19 24 10/15/2023 urina lysis , dipst ick Color Dark Yellow Not Available [facility] [address] [place], [address], 10/15/2023 16:09:22 03/10/19 25 03/10/2024 urina lysis , dipst ick Color Yellow Not Available [facility] [place] [address], [place], [address], 03/10/2024 11:41:49 03/10/19 25 03/10/2024 urina lysis , dipst ick Appearance Clear Not Available [facility] [place] [address] [place] [address] [address], [place], [address], 03/10/2024 11:41:49 03/10/19 25 03/10/2024 urina lysis , dipst ick Glucose (reference range: negative mg/dl) 1000 Not Available [facility] [place] [address] [place] [address] [address], [place], [address], 03/10/2024 11:41:49 03/10/19 25 03/10/2024 urina lysis , dipst ick Bilirubin (reference range: negative mg/dl) Negati ve Not Available [facility] [place] [address] [place] [address] [address], [place], [address], 03/10/2024 11:41:49 03/10/19 25 03/10/2024 urina lysis , dipst ick Ketone (reference range: negative mg/dl) Negati ve Not Available [facility] [place] [address] [place] [address] [address], [place], [address], 03/10/2024 11:41:49 03/10/19 25 03/10/2024 urina lysis , dipst ick Specific Flowood (reference range: 1.005-1.030) 1.025 Not Available [facility] [place] [address], [place], [address], 03/10/2024 11:41:49 03/10/19 25 03/10/2024 urina lysis , dipst ick Blood (reference range: negative Moose/ l) Small Not Available [facility] [place] [address], [place], [address], 03/10/2024 11:41:49 03/10/19 25 03/10/2024 urina lysis , dipst ick pH (reference range: 5-7) 5.5 Not Available [facility] [address] [facility] [address], [place], [address], 03/10/2024 11:41:49 03/10/19 25 03/10/2024 urina lysis , dipst ick Protein (reference range: negative mg/dl) Negati ve Not Available [facility] [address], [place], [address], 03/10/2024 11:41:49 03/10/19 25 03/10/2024 urina lysis , dipst ick Urobilinogen (reference range: 0.2-1 mg/dl) 1 Not Available [facility] [place] [address], [place], [address], 03/10/2024 11:41:49 03/10/19 25 03/10/2024 urina lysis , dipst ick Nitrite (reference rage: negative mg/dl) negati ve Not Available [facility] [address] [facility] [address], [place], [address], 03/10/2024 11:41:49 03/10/19 25 03/10/2024 urina lysis , dipst ick Leukocytes (reference range: negative j luis/ l) Negati ve Not Available [facility] [place] [address], [place], [address], 03/10/2024 11:41:49 Result Notes None recorded. Problems Name Problem SNOMED Code Status Onset Date Resolution Date Notes Provider Name and Address Organization Details Recorded Time Tremor 84500553 Active 2022 Joan baer RMA null, [place] [facility] 4 08:42:13 COVID-19 383397400 Completed 202204/10/2023 Joan baer, RMA null, [place] [facility] 4 08:41:45 Hearing loss 02250241 Active 2022 Joan baer, RMA null, [place] [facility] 4 08:41:56 Acute sinusitis 18997897 Completed 202204/10/2023 Joan baer, RMA null, [place] [facility] 4 08:41:41 Parkinson' s disease 96120183 Active 2022 Joan baer RMA null, [place] [facility] 4 08:42:01 Urinary symptoms 776064334 Active 2023 Pal Mtz MD [address] [facility], [place], [address] , [place] [facility] 4 16:03:49 Overactive urinary bladder 866874855 Active 2024 Carlos Santillan MD [address], [address], [place], [address] , [place] [facility] 5 13:11:46 Adult health examinatio n Active 2020 Not Available [facility] 3 02:06:08 Low back pain 725919110 Active 2021 Not Available [facility] 3 02:06:08 Prostate specific antigen above reference range 026862132 Active 2021 Not Available [facility] 3 02:06:08 Obesity 409860057 Active Not Available [facility] 3 02:06:08 History of calculus of kidney 744000574 Active 2021 Not Available [facility] 3 02:06:08 Coronary arterioscl erosis 47781668 Active Not Available [facility] 3 02:06:08 Hyperlipid emia 31457183 Active Not Available [facility] 3 02:06:08 Essential hypertensi on 35631955 Active Not Available [facility] 3 02:06:08 Essential tremor 698196070 Completed 202104/10/2023 JANET Sofia, [facility] 4 08:42:15 Carotid artery stenosis 56794892 Active 2020 Not Available [facility] 3 02:06:08 Diabetes mellitus 26345921 Active Not Available [facility] 3 02:06:08 Sleep apnea 91302322 Active 2019 Not Available [facility] 3 02:06:08 Kidney stone 67704643 Active 2021 Not Available [facility] 3 02:06:08 Problem Notes None recorded. Procedures Surgical History Date Name Laterality Status Provider Name and Address Organization Details Recorded Time 12/17/19 Medicare Wellness CPT Code, subsequent completed Candie Pritchard RN [facility] 12/16/2022 10:39:40 11/07/19 Cysto/uretero w/lithotripsy completed Not Available [facility] 04/10/2022 04:42:56 Cardiovascular Procedure completed Not Available [facility] 04/10/2022 04:42:56 Imaging Results None recorded. Procedure Notes None recorded. Medical Equipment None Reported. Allergies Allergen ID Allergen Name Allergen Category Reaction Reaction Severity Criticality Documentation Date Start Date Code Code System Note Provider Name and Address Organization Details Recorded Time 9016 naproxen medicatio n hives Not available Not available 04/10/2022 7258 RxNorm Not Available [facility] 3 05:06:55 9017 Advil medicatio n hives Not available Not available 04/10/2022 87471 0 RxNorm Not Available [facility] 3 05:06:55 Medications Name Sig Start Date Stop Date Status Note LastModified by Organization Details LastModified Time amoxicilli n 500 mg capsule TAKE 1 CAPSULE BY MOUTH THREE TIMES DAILY FOR 7 DAYS 12/16 completed Not Available Not Available Not Available metformin 500 mg tablet TAKE 2 TABLETS BY MOUTH TWICE DAILY WITH THE MORNING AND EVENING MEAL active Not Available Not Available No t Available primidone 50 mg tablet TAKE 1/2 TABLET BY MOUTH AT BEDTIME AND INCREASE BY 1/2 TABLET EVERY WEEK UNTIL 5 TABLETS EVERY NIGHT AT BEDTIME active Not Available Not Available No t Available atorvastat in 20 mg tablet TAKE 1 TABLET BY MOUTH EVERY DAY active Not Available Not Available No t Available enalapril maleate 10 mg tablet TAKE 1 TABLET BY MOUTH DAILY active Not Available Not Available No t Available oxybutynin chloride ER 10 mg tablet,ext ended release 24 hr TAKE 1 TABLET BY MOUTH EVERY DAY active Not Available Not Available No t Available aspirin 325 mg tablet TK 1 T PO D active Not Available Not Available No t Available carbidopa 25 mg-levodop a 250 mg tablet TAKE 1 TABLET BY MOUTH THREE TIMES DAILY active Not Available Not Available No t Available hydrocodon e 5 mg-acetami nophen 325 mg tablet TAKE 1 TABLET BY MOUTH EVERY 4 HOURS NEEDED 03/02 completed Not Available Not Available Not Available ciprofloxa gera 250 mg tablet 02/26 completed Not Available Not Available Not Available tramadol 50 mg tablet TAKE 1 TABLET BY MOUTH EVERY 8 HOURS NEEDED. 12/07 completed Not Available Not Available Not Available amoxicilli n 500 mg tablet TAKE 1 TABLET BY MOUTH THREE TIMES DAILY UNTIL GONE 12/07 completed Not Available Not Available Not Available glimepirid e 2 mg tablet TAKE 1 TABLET BY MOUTH TWICE DAILY active Not Available Not Available No t Available carvedilol 3.125 mg tablet TAKE 1 TABLET BY MOUTH TWICE DAILY active Not Available Not Available No t Available ondansetro n 8 mg disintegra ting tablet DISSOLVE ONE TABLET PO Q 8 H PRN FOR NAUSEA 01/29 completed Not Available Not Available Not Available glimepirid e 1 mg tablet TAKE ONE TABLET DAILY 01/29 completed Not Available Not Available Not Available Zofran 8 mg tablet Take 1 tablet every day by oral route as directed for 1 day. 02/24 completed Not Available Not Available Not Available aspirin 325 mg tablet,del ayed release TAKE ONE TABLET DAILY active Not Available Not Available No t Available tamsulosin 0.4 mg capsule TAKE 1 CAPSULE BY MOUTH EVERY DAY 04/11 completed Not Available Not Available Not Available OneTouch Ultra Test strips active Not Available Not Available Not Available methylpred nisolone 4 mg tablets in a dose pack take as directed 06/11 completed Not Available Not Available Not Available trihexyphe nidyl 2 mg tablet TAKE 1 TABLET BY MOUTH THREE TIMES DAILY WITH FOOD. START WITH 1 TABLET AT BEDTIME FOR 2 WEEKS AND THEN. INCREASE TO 1 TABLET 2 TIMES A DAY active Not Available Not Available No t Available carbidopa 25 mg-levodop a 100 mg tablet TAKE 2 TABLETS BY MOUTH THREE TIMES DAILY active Not Available Not Available No t Available Percocet 5 mg-325 mg tablet Take 1 tablet every 6 hours by oral route. 12/07 completed Not Available Not Available Not Available ondansetro n 4 mg disintegra ting tablet Place 1 tablet twice a day by translin gual route as needed. active as needed for nausea Not Available Not Available Not Available amoxicilli n 875 mg-potassi um clavulanat e 125 mg tablet Take 1 tablet every 12 hours by oral route. 06/11 completed Not Available Not Available Not Available oxycodone 5 mg tablet TAKE 1 TABLET BY MOUTH EVERY 6 HOURS NEEDED FOR PAIN 12/07 completed Not Available Not Available Not Available Fluzone High-Dose 7611-5088 (PF) 180 mcg/0.5 mL intramuscu lar syringe 02/26 completed Not Available Not Available Not Available OneTouch Ultra Blue Test Strip TEST BID UTD active Not Available Not Available No t Available Fluad 65yr up(PF)45 mcg(15 mcgx3)/0.5 mL intramuscu lar syringe 01/29 completed Not Available Not Available Not Available Fluad 2019- 65yr up(PF)45 mcg(15 mcgx3)/0.5 mL intramuscu lar syringe 02/24 completed Not Available Not Available Not Available Paxlovid 300 mg (150 mg x 2)-100 mg tablets in a dose pack Take 1 dose pk by oral route as directed . 08/14 completed Not Available Not Available Not Available Vitals Date Recorded Body height Body mass index (BMI) Body weight Body temperature Heart rate Oxygen saturation Oxygen saturation in Arterial blood by Pulse oximetry Systolic blood pressure Diastolic blood pressure Provider Name and Address Organization Details Last Updated DateTime 4 165.1 cm 38.6 kg/m2 887844. 43 g 98.6 [degF] 73 /min 97 % 97 % 138 mm[Hg] 78 mm[Hg] Darya clinton CMA [facility] 4 09:41:12 Date Recorded Body height Body mass index (BMI) Body weight Body temperature Heart rate Oxygen saturation Oxygen saturation in Arterial blood by Pulse oximetry Systolic blood pressure Diastolic blood pressure Provider Name and Address Organization Details Last Updated DateTime 4 165.1 cm 37.8 kg/m2 782366. 47 g 97.3 [degF] 71 /min 96 % 96 % 150 mm[Hg] 80 mm[Hg] JANET Pickett [place] [facility] [employer] 4 10:34:33 Date Recorded Body height Body mass index (BMI) Body weight Body temperature Heart rate Oxygen saturation Oxygen saturation in Arterial blood by Pulse oximetry Systolic blood pressure Diastolic blood pressure Provider Name and Address Organization Details Last Updated DateTime 4 165.1 cm 37.8 kg/m2 224328. 47 g 97.4 [degF] 74 /min 97 % 97 % 144 mm[Hg] 76 mm[Hg] Kayla Lewis [facility] 4 15:37:43 Date Recorded Body weight Heart rate Body temperature Oxygen saturation Oxygen saturation in Arterial blood by Pulse oximetry Body mass index (BMI) Body height Systolic blood pressure Diastolic blood pressure Provider Name and Address Organization Details Last Updated DateTime 5 905327. 28 g 75 /min 98.1 [degF] 97 % 97 % 37.4 kg/m2 165.1 cm 138 mm[Hg] 78 mm[Hg] Julissa sam [facility] 5 12:16:09 Date Recorded Body height Heart rate Body temperature Body mass index (BMI) Body weight Oxygen saturation Oxygen saturation in Arterial blood by Pulse oximetry Systolic blood pressure Diastolic blood pressure Provider Name and Address Organization Details Last Updated DateTime 5 165.1 cm 75 /min 97 [degF] 37.3 kg/m2 640985. 69 g 98 % 98 % 121 mm[Hg] 97 mm[Hg] Vanita Bolden CMA [facility] 5 11:47:34 Social History Question Answer Notes LastModified by Organizat ion Details LastModified Time Tobacco Smoking Status Never Smoker Not Available [employer] 04/10/2022 04:41:58 Do You Have An Advance Directive? No Papers Given [id number] Information not available 04/10/2022 What Is Your Level Of Alcohol Consumption? None MIGRATION.06415 62251 Information not available 04/10/2022 Are You Blind Or Do You Have Difficulty Seeing? No MIGRATION.52876 13153 Information not available 04/10/2022 What Is Your Level Of Caffeine Consumption? Moderate Diet Pepsi MIGRATION.44915 55471 Information not available 04/10/2022 How Much Tobacco Do You Chew? None MIGRATION.32779 65724 Information not available 04/10/2022 Are You Deaf Or Do You Have Serious Difficulty Hearing? Yes MIGRATION.18788 99006 Information not available 04/10/2022 What Type Of Diet Are You Following? REGULAR MIGRATION.86812 55185 Information not available 04/10/2022 Which Illicit Or Recreational Drugs Have You Used? 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 No MIGRATION.35678 62260 Information not available 04/10/2022 What Is The Fluoride Status Of Your Home? Fluoridated MIGRATION.15477 54097 Information not available 04/10/2022 Where Do You Live? SingleLevelHouse MIGRATION.21010 94182 Information not available 04/10/2022 What Was The Date Of Your Most Recent Tobacco Screening? 05/15/2022 Information not available 05/15/2022 What Is Your Relationship Status? MIGRATION.31732 75759 Information not available 04/10/2022 Do You Use Your Seat Belt Or Car Seat Routinely? Yes MIGRATION.72120 86876 Information not available 04/10/2022 Do You Have Smoke And Carbon Monoxide Detectors In Your Home? Yes MIGRATION.58131 97449 Information not available 04/10/2022 Do You Use Sunscreen Routinely? No MIGRATION.05680 71995 Information not available 04/10/2022 Sex: Male Functional Status Question Answer Note LastModified by Organizat [employer] Details LastModified Time Do you have difficulty walking or climbing stairs? No MIGRATION.[id number] 026 Information not available 04/10/2022 Do you have transportation difficulties? No MIGRATION.2926084 026 Information not available 04/10/2022 Are you able to walk? YESWOREST MIGRATION.4663251 026 Information not available 04/10/2022 Do you have difficulty doing errands alone? No MIGRATION.6608362 026 Information not available 04/10/2022 Are you able to care for yourself? Yes MIGRATION.[id number] 026 Information not available 04/10/2022 Do you have difficulty dressing or bathing? No MIGRATION.2750786 026 Information not available 04/10/2022 What is your exercise level? Occasional MIGRATION.[id number] 026 Information not available 04/10/2022 Mental Status Question Answer Note LastModified by Organizat ion Details LastModified Time Do you have difficulty concentrating, remembering or making decisions? No MIGRATION.[id number] 6 Information not available 04/10/2022 Family History Relationship Description Onset Age of this Age Resolved Age Notes LastModified by Organization Details LastModified Time Father Heart disease MIGRATION.466 [id number] Not available 04/10/2022 04:43:05 Sister Essential hypertension MIGRATION.913 [id number] Not available 04/10/2022 04:43:06 Sister Diabetes mellitus MIGRATION.862 [id number] Not available 04/10/2022 04:43:06 Sister Heart disease MIGRATION.389 [id number] Not available 04/10/2022 04:43:06 Mother Malignant neoplastic disease Breast /Brain MIGRATION.465 [id number] Not available 04/10/2022 04:43:06 Mother Diabetes mellitus MIGRATION.286 [id number] Not available 04/10/2022 04:43:06 Brother Diabetes mellitus MIGRATION.550 [id number] Not available 04/10/2022 04:43:06 Brother Kidney stone MIGRATION.0 30 [id number] Not available 04/10/2022 04:43:06 Brother Heart disease MIGRATION.170 [id number] Not available 04/10/2022 04:43:06 Medical History Condition Response KIDNEY STONES Y HEPATITIS / LIVER DISEASE Y HEART DISEASE/HEART PROBLEMS Y DIABETES, TYPE Y KIDNEY DISEASE Y URINARY/BLADDER/KIDNEY PROBLEMS Y Immunizations Vaccine Type Date Status Note Provider Nam e and Address Organization Details Recorded Time Influenza, high-dose, quadrivalent, PF 1 completed Darya Peters CMA null, [facility] 04/14/2023 09:41:17 Influenza, high-dose, trivalent, PF 0 completed Not Available [facility] 09/01/2022 02:06:09 Influenza, split virus, quadrivalent, preservative 9 completed Not Available [facility] 09/01/2022 02:06:09 Influenza, high-dose, trivalent, PF 7 completed Darya Peters CMA null, [facility] 04/14/2023 09:41:17 pneumococcal polysaccharide PPV23 9 completed Not Available [facility] 09/01/2022 02:06:09 Influenza, high-dose, trivalent, PF 8 completed Not Available [facility] 09/01/2022 02:06:09 Pneumococcal conjugate PCV 13 7 completed Not Available [facility] 09/01/2022 02:06:09 Influenza, high-dose, quadrivalent, PF 3 completed Pal Mtz MD [address] [place] [address], [address], [facility] 12/16/2022 14:15:59 Past Encounters Encounter ID Performer Location Encounter Start Date Encounter Closed Date Diagnosis/Indication Diagnosis SNOMED-CT Code Diagnosis ICD10 Code Diagnosis Note [id number] [facility] [address] [place] [address] 07/25/2020 00:00:00 07/25/2020 10:34:34 [id number] [facility] [place] [address] [address] 11/03/2020 00:00:00 11/03/2020 15:21:51 [id number] [facility] [place] [address] [place] [address] 12/07/2020 00:00:00 12/07/2020 14:14:06 [id number] [facility] [place] [place] [address] 01/10/2021 00:00:00 01/10/2021 17:30:55 [id number] [facility] [place] [address] [place] [address] 03/02/2021 00:00:00 03/02/2021 16:25:46 [id number] [facility] [address] [address] 03/09/2021 00:00:00 03/09/2021 17:11:50 [id number] [facility] [address] [place] [address] 04/09/2021 00:00:00 04/09/2021 11:04:05 [id number] [facility] [address] [address] 04/13/2021 00:00:00 04/13/2021 16:40:21 [id number] [facility] [address] [address] [place] [address] 06/21/2021 00:00:00 06/21/2021 11:59:34 [id number] [facility] [address] [place] [address] 08/08/2021 00:00:00 08/08/2021 11:00:07 [id number] [facility] Internal Med [address] [place] [address] 12/13/2021 00:00:00 12/13/2021 13:08:05 [id number] Pal Mtz MD [facility] Internal Med [address] [place] [address] 04/11/2022 09:57:08 04/11/2022 11:18:18 Carotid artery stenosis 27877821 I65.29 on asa Coronary arteriosclerosis 86718886 I25.10 stable Diabetes mellitus 261217 09 E11.9 under control Essential hypertension 16584424 I10 under control Hyperlipidemia 60676213 E78.5 stable Kidney stone 45216975 N2 0.0 no recurrence Obesity 191059039 E66.9 advised Prostate s pecific antigen above reference range 840428375 R97.20 discussed that it is very important to f/u with urologist, willing, possibilit y of prostate cancer with elevated psa discussed Sleep apnea 71498315 G47 .30 advised to use cpap every night Adult heal th examination 374354185 Z00.00 colonoscop y- Never , willing to get cologuardp - 2pre vnar - 07/23/2016 Pneumovax - 2019 FLU- 2021 at [facility].Eye exam- yearlyCOVI D- Has had Moderma vaccinatio n- does not have card on him, booster as well Screening for malignant neoplasm of colon 490088332 Z12.11 Tremor 83917930 R25.1 getting worse [id number] Ottoniel Pratt MD [facility] E[facility] [place] [address] [place] [address] 05/15/2022 11:30:59 05/15/2022 12:13:48 Prostate specific antigen above reference range 560051658 R97.20 :-PSA TREND:04/29 23 - 7.8 --> A1c 7.5% 2 - 6.91 - 5.9------- ----We discussed the utility and limitation s of the PSA as a screening test for prostate cancer. We discussed that an elevated PSA can be due to benign etiologies such as infection or urinary retention, and these should be ruled out prior to considerat ion of a biopsy. We discussed the AUA Guideline recommenda tion of screening once every 1-2 years for men aged 55-69 with a 10 year life expectancy , as well as considerat ion of PSA screening in men between the ages of 40-55 if they have significan t risk factors such as a strong family history of prostate/o varian/nasim ast cancer spanning multiple generation s, affecting multiple first-degr ee relatives, and that developed at younger ages. We discussed that isolated PSA elevations should be confirmed before considerat ion of biopsy. We discussed that given the overall clinical picture, there is reasonable concern for prostate cancer, and discussed that prostate cancer is a tissue diagnosis (requiring biopsy) and cannot be initially diagnosed on PSA alone. After reviewing the risks, benefits, and alternativ es to proceeding with a prostate biopsy, the patient is NOT comfortabl e with proceeding with a biopsy at this time, and needs more time to think about it. I offered him a biopsy in office vs. with sedation. I counseled the patient that, after prostate biopsy, it is expected to have blood in the stool and urine for the next 7-14 days, and possibly to have discolorat ion of the semen for up to 6 months. I counseled him on the ~2-4% risk of a local infection (UTI) and ~1-2% risk of a more serious blood stream infection (sepsis). Should he develop fevers >101 or flu-like symptoms, he knows to seek medical attention immediatel y. PLAN:-Urin alysis (to rule out infection) -PVR (to rule out retention) -Patient to RTC 6-12 weeks with another PSA prior -- he has my info sheets and will use this time to further weigh the risks/Bene fits of getting the advised biopsy [id number] Pal Mtz MD [facility] [address] [place] [address] 08/14/2022 09:59:57 08/14/2022 10:25:39 Carotid artery stenosis 28850568 I65.29 on asa, he will get dopplers at [facility] Coronary arteriosclerosis 52383315 I25.10 stable Diabetes mellitus 260491 09 E11.9 not under control, diet and weight reduction discussed, may add meds if not better Essential hypertension 55923122 I10 under control Hyperlipidemia 21044929 E78.5 stable Kidney stone 50309629 N2 0.0 no recurrence Obesity 206451992 E66.9 advised to watch diet Prostate s pecific antigen above reference range 406401370 R97.20 to see uologst after the labs Sleep apnea 99248974 G47 .30 advised to use cpap every night Adult [facility] th examination 355400308 Z00.00 colonoscop y- Never , willing to get cologuardp sa- 3pre vnar 07/23/2016 Pneumovax 2019 FLU- 2021 at [facility].Eye exam- yearlyCOVI D- Has had Moderma vaccinatio n- does not have card on him, booster as well Tremor 99970804 R25.1 to see neurology Hearing loss 52791428 H9 1.93 advised to get hearing testing [id number] Pal Mtz MD [facility] [address] [place] [address] 12/16/2022 09:55:08 12/16/2022 10:52:45 Diabetes mellitus 66642130 E11.9 watch diet Carotid ar jes stenosis 35027694 I65.29 on asa, Coronary arteriosclerosis 70619986 I25.10 stable Essential hypertension 93640631 I10 under control Hyperlipidemia 87219648 E78.5 stable Kidney stone 19489631 N2 0.0 no recurrence Obesity 372709641 E66.9 advised to watch diet Prostate s pecific antigen above reference range 632255495 R97.20 does not want to see urology Sleep apnea 90460310 G47 .30 advised to use cpap every night Adult [facility] examination 391146531 Z00.00 colonoscop y- Never , willing to get cologuardp sa- 3pre vnar 07/23/2016 Pneumovax 2019 FLU- 12/16/22Ey e exam- yearlyCOVI D- Has had Moderma vaccinatio n- does not have card on him, booster as well Hearing loss 19639953 H9 1.93 advised to get hearing testing Administra tion of influenza vaccine 47727375 Z23 Parkinson's disease 4904 9000 G20.A1 on meds, f/u with neurology in 03/05 Screening for disorder 156656511 Z13.9 [id number] Pal Mtz MD [facility] Internal Med [address] [place] [address] 04/14/2023 09:34:51 04/14/2023 10:14:55 Diabetes mellitus 96758832 E11.9 keep watching diet Carotid ar jes stenosis 60520166 I65.29 on asa, [facility] Coronary arteriosclerosis 00880247 I25.10 stable Essential hypertension 52677322 I10 under control Hyperlipidemia 41074115 E78.5 stable Kidney stone 21806467 N2 0.0 no recurrence Obesity 060096150 E66.9 advised to watch diet Sleep apnea 35278561 G47 .30 advised to use cpap every night Adult heal th examination 601408347 Z00.00 colonoscop y- Never , willing to get cologuardp sa- 3pre vnar 13- 07/23/2016 Pneumovax - 2019 FLU- 12/16/2022 Eye exam- yearlyCOVI D- Has had Moderma vaccinatio n- does not have card on him, booster as well Hearing loss 98970572 H9 1.93 advised to get hearing testing Parkinson's disease 4904 9000 G20.A1 meds help Prostate s pecific antigen above reference range 530324958 R97.20 does not want to see urology [id number] Pal Mtz MD [facility] Internal [facility] [address] [place] [address] 08/18/2023 10:21:11 08/18/2023 11:02:07 Diabetes mellitus 38940817 E11.9 advise dto watch diet Carotid ar jes stenosis 04192733 I65.29 on asa, Coronary arteriosclerosis 30249959 I25.10 stable Essential hypertension 26696847 I10 home numbers are under control Hyperlipidemia 09480589 E78.5 stable Kidney stone 32450215 N2 0.0 no recurrence Obesity 943544799 E66.9 advised to watch diet Prostate s pecific antigen above reference range 464616867 R97.[address] to see urology DR Pratt Sleep apnea 31334480 G47 .30 advised to use cpap every night Adult [facility] examination 745902492 Z00.00 colonoscop y- Never , willing to get cologuardp sa- re vnar 07/23/2016 Pneumovax 2019 FLU- 12/16/22Ey e exam- yearlyCOVI D- Has had Moderma vaccinatio n- does not have card on him, booster as well Hearing loss 30187186 H9 1.93 can't afford hearing aids Parkinson's disease 4904 9000 G20.A1 better with meds [id number] Pal Mtz MD [facility] Internal Med [facility] [address] [place] [address] 10/15/2023 15:27:25 10/15/2023 16:39:55 Urinary symptoms 453132875 R39.9 urine dipstick done today and is clear Parkinson's disease 4904 9000 G20.A1 advised to restart , Levodopa/c arbidopa and hold off other meds [id number] Pal Mtz MD [facility] Internal Med [place] [address] [place] [address] 03/01/2024 11:38:57 03/01/2024 12:27:11 Diabetes mellitus 40600501 E11.9 advised to watch diet Carotid ar jes stenosis 32947485 I65.29 on asa, Coronary arteriosclerosis 96573892 I25.10 stable Essential hypertension 22608473 I10 under control Hyperlipidemia 68258176 E78.5 stable Kidney stone 09361139 N2 0.0 no recurrence Obesity 910843039 E66.9 advised to watch diet Prostate s pecific antigen above reference range 894017489 R97.20 advised to see urology Sleep apnea 30381791 G47 .30 advised to use cpap every night Adult [facility] examination 140526055 Z00.00 colonoscop y- Never , willing to get cologuardp sare vnar 07/23/2016 Pneumovax 23- 2019 FLU- 12/16/22, 01/12/24Eye exam- yearlyCOVI D- Has had Moderma vaccinatio n- does not have card on him, booster as well Hearing loss 15938115 H9 1.93 hearing aids Parkinson's disease 4904 9000 G20.A1 better with meds [id number] Carlos Santillan MD [facility] [place] [address] [place] [address] 03/10/2024 11:35:02 03/10/2024 12:19:54 Prostate specific antigen above reference range 873178351 R97.20 Overactive urinary bladder 647639551 N32.81 Parkinson's disease 4904 9000 G20.A1 Health Concerns Section Related Observation LastModified by Organization Detai ls LastModified Time None Recorded Concern Status LastModified by Organization Details LastModified Time None Recorded Advance Directives Directive N: papers given Payers Encounter Date Sequence Insurance Name Policy Number Policy Bowers Covered Member ID Bowers Member ID Guarantor Name 04/14/2023 1 [facility] (MEDICARE REPLACEMENT/A DVANTAGE - HMO) [id number] Chato Cee [id number] Chato Cee 08/18/2023 1 [facility] (MEDICARE REPLACEMENT/A DVANTAGE - HMO) [id number] Chato Cee [id number] Chato Cee 10/15/2023 1 [facility] (MEDICARE REPLACEMENT/A DVANTAGE - HMO) [id number] Chato Cee [id number] Chato Cee 03/01/2024 1 [facility] (MEDICARE REPLACEMENT/A DVANTAGE - HMO) [id number] Chato Cee [id number] Chato Cee 03/10/2024 1 [facility] (MEDICARE REPLACEMENT/A DVANTAGE - HMO) [id number] Chato Cee [id number] Chato Cee Notes Date Note Type Note Provider Name and Address Organization Details Recorded Time 04/14/2023 text/html Doing fine, comp liant to medications, no side affects, here for follow up.. Hearing loss. has hearing aids, old and don't work, Diabetes- accu checks are done, AVG- 130-150'sno neuropathyno [id number] was 7.1 (12/16/22), gets eye exam ([facility])Meds- Metformin 500 mg 2 BID, Glimepiride 2 mg BID CAD s/p [place] 2013, stents x 2 , dr tapia, no symptomsMeds- asa Cardiomyopathy- no symptoms, EF 55% Obesity, diet not under control, weight gain 3 lb HTN - under control with medsMeds- Enalapril 10 mg daily, Carvedilol 3.125 mg BID Sleep apnea- on cpap, non-compliant - mask makes a rash on his face Hyperlipidemia, better with medsMeds- Atorvastatin 20 mg daily Back pain off and on, otc Carotid stenosis- mild disease, Dopplers 07/31 h/o kidney stone, seen urology Elevated PSA, seen urology, does not want biopsy, psa was 7.1, did not f/u with urology but willing Parkinson,'s Tremors- on rest, right hand, interferes with some activities, tremor on rest, seen neurologist, on meds Pal Mtz MD [address] [facility], [place], [address], [facility] [address] [employer] 04/14/2023 10:36:15 08/18/2023 text/html Doing fine, comp liant to medications, no side affects, here for follow up.. Hearing loss. has hearing aids, old and don't work, reluctant to get another hearing testing Diabetes- accu checks are done, AVG- 100-190no [id number] was 7.5 (04/14/2023),gets eye exam ([facility]) 2022Meds- Metformin 500 mg 2 BID, Glimepiride 2 mg BID CAD s/p [place] 2013, stents x 2 , dr tapia, no symptomsMeds- asa Cardiomyopathy- no symptoms, EF 55% Obesity, diet not under control, lost 5 lb HTN -NOT under control with meds , [facility]- Enalapril 10 mg daily, Carvedilol 3.125 mg BID Sleep apnea- on cpap, non-compliant - mask makes a rash on his face Hyperlipidemia, better with meds, labs 05/03Meds- Atorvastatin 20 mg daily Back pain off and on, otc Carotid stenosis- mild disease, Dopplers 07/31 h/o kidney stone, seen urology Elevated PSA, seen urology, does not want biopsy, psa was 8.2, aware that it could be cancer, discussed to see urology, he agreed, he has his number and will make appt. Parkinson's - on rest, right hand, interferes with some activities, tremor on rest, seen neurologist and meds have some postive effectMeds- Carbidopa 25mg - Levodopa 100mg 1.5tabs TID Pal Mtz MD [address] [facility], [address], [place], [address], [employer] 08/18/2023 11:06:58 10/15/2023 text/html Pt is here today for a possible side effect to a medicationStates that about 3 weeks ago he passed out. Got up to walk to the kitchen and down he went. Did not go to the ER. Does C/o back pain, does not know if the pain is from the fall of the medication causing the pain . (Uncomfortable) C/o lower abdomen pain that radiated around to the low back areaMEDS HE IS NO LONGER TAKINGCarbidopa-Levodo pa 25mg/100mgTrihexypheni dyl 2mgPrimidone 50mg HE THINKS THAT HIS URINE SYMPTOMS ARE DUE TO HIS MEDSno other urinary symptoms Pal Mtz MD [address] [facility], [address], [place], [address], [employer] 10/15/2023 16:17:37 03/01/2024 text/html Pt is her today for a 4 month F/U. Pt is compliant to medications, no side affects. Pt has a runny nose. PT IS NOT FASTING ([facility]) Hearing loss. has hearing aids, old and don't work, reluctant to get another hearing testing Diabetes- accu checks are done, [id number] was 7.5 (04/14/2023),last eye exam 02/26/24 ,05/17/24 cataract surgery left eye, 2 wks later for right eyeMeds- Metformin 500 mg 2 BID, Glimepiride 2 mg BID CAD s/p [place] 2013, stents x 2 , dr saheta, no symptomsMeds- asa Cardiomyopathy- no symptoms, EF 55% Obesity, diet not under control, lost 2 lb HTN -NOT under control with meds , HOME NUMBERS ARE GOODMeds- Enalapril 10 mg daily, Carvedilol 3.125 mg BID Sleep apnea- on cpap, non-compliant - mask makes a rash on his face Hyperlipidemia, better with meds, labs 05/03Meds- Atorvastatin 20 mg daily Back pain off and on, otc Carotid stenosis- mild disease, Dopplers 07/31 h/o kidney stone, seen urology Elevated PSA, seen urology, does not want biopsy, psa was 8.2, aware that it could be cancer, discussed to see urology, willing Parkinson's - right hand, interferes with some activities, tremor on rest, seen neurologist and meds have some postive effectMeds- Carbidopa 25mg - Levodopa 100mg 1.5tabs TID Pal Mtz MD [address], [address], [place], [address], [employer] 03/01/2024 12:24:15 03/10/2024 text/html this patient is here for an elevated PSA of 8.23 which was done actually almost a year ago in April of 2023. Comes in his urinalysis is negative for any infection. He also has some overactive bladder symptoms He also has Parkinson's and has a significant tremor of his right arm He has a lot of frequency urgency symptoms with starting and stopping of his stream. He voids with a good stream he just has to go often Carlos Santillan MD [address], [address], [place], [address], [employer] 03/10/2024 13:14:01
== END 2024-04-27 09:48 | disposition home or self-care (01) ==
PROVIDERS: PCP Internal Medicine; Visit Provider Internal Medicine
DX: I65.23 Occlusion and stenosis of bilateral carotid arteries (principal)
CPT/HCPCS: 93880

== ENCOUNTER 2024-08-31 12:20 | Outpatient (CLI) | payer MEDICARE, SELFPAY ==
--- NOTE | ~2024-08-31 | XR_ITS ---
EXAM/ PROCEDURE: XR foot RT min 3V - 08/31/2024 12:40 CDT HISTORY: 74 years old Male with right foot pain x 1 month, most in plantar region COMPARISON: None available TECHNIQUE: Four view(s) FINDINGS/ IMPRESSION: There are no fractures or dislocations.Joint space narrowing, subchondral sclerosis, subchondral cyst formation and osteophyte formation, compatible with mild osteoarthritis. Plantar calcaneal enthesopathy. Reviewed, dictated and finalized at location A.
== END 2024-08-31 12:21 | disposition home or self-care (01) ==
PROVIDERS: PCP Internal Medicine
DX: M77.31 Calcaneal spur, right foot (principal)
CPT/HCPCS: 73630